=== PATIENT | male | born 1955 | race Caucasian/White ===

== ENCOUNTER → 2017-09-26 15:08 | Outpatient (REF) | payer MEDICARE, MEDICAID, SELFPAY ==
[2017-09-26 17:27] LABS: Amphetamine/Metha Screen,Urine Negative ng/mL (<1000); Barbiturates Screen,Urine Negative ng/mL (<200); Benzodiazepines Screen,Urine Positive ng/mL (200); Cannabinoid Screen,Urine Negative ng/mL (<50); Cocaine Screen,Urine Negative ng/g (<300); Methadone Screen,Urine Negative ng/mL (<300); Opiate Screen,Urine Negative ng/mL (<300); Phencyclidine Screen,Urine Negative ng/mL (<25)
== END ==
LOC: LAB 15:08
PROVIDERS: Visit Provider Emergency Medicine
DX: Z79.899 Other long term (current) drug therapy (principal)
CPT/HCPCS: 80305

== ENCOUNTER → 2017-12-23 14:27 | Outpatient (REF) | payer MEDICARE, MEDICAID, SELFPAY ==
[2017-12-23 18:47] LABS: Basophils % 0.9 % (0.1-2.0); Eosinophils # 0.1 K/mm3 (0.0-0.4); Eosinophils % 2.5 % (0.1-12.0); Hematocrit 47.1 % (42.0-52.0); Hemoglobin 14.5 g/dL (14.1-18.0); Lymphocytes # 1.2 K/mm3 (0.7-4.5); Lymphocytes % 24.2 K/mm3 (10-50); Mean Corpuscular HGB Conc 30.9 g/dL (31.8-35.4); Mean Corpuscular Hemoglobin 31.1 pg (27.0-31.2); Mean Corpuscular Volume 100.6 fl (80-94); Mean Platelet Volume 8.4 fl (7.4-10.4); Monocytes # 0.3 K/mm3 (0.1-1.0); Monocytes % 7.2 % (1.7-9.3); Neutrophils # 3.1 K/mm3 (1.8-7.8); Neutrophils % 65.2 % (37.0-80.0); Platelet Count 257 K/mm3 (142-424); Red Blood Count 4.68 M/mm3 (4.60-6.20); Red Cell Distribution Width 18.1 % (11.5-17.5); White Blood Count 4.8 K/mm3 (4.8-10.8)
[2017-12-23 19:36] LABS: Amphetamine/Metha Screen,Urine Negative ng/mL (<1000); Barbiturates Screen,Urine Negative ng/mL (<200); Benzodiazepines Screen,Urine Positive ng/mL (200); Cannabinoid Screen,Urine Negative ng/mL (<50); Cocaine Screen,Urine Negative ng/g (<300); Methadone Screen,Urine Negative ng/mL (<300); Opiate Screen,Urine Negative ng/mL (<300); Phencyclidine Screen,Urine Negative ng/mL (<25)
[2017-12-23 19:39] LABS: Alanine Aminotransferase 33 U/L (12-78); Albumin Level 3.8 gm/dL (3.4-5.0); Albumin/Globulin Ratio 1.1 (1.1-1.8); Alkaline Phosphatase 137 U/L (46-116); Aspartate Amino Transferase 45 U/L (15-37); Bilirubin,Total 0.5 mg/dL (0.2-1.0); Blood Urea Nitrogen 9 mg/dL (7-18); Calcium 9.4 mg/dL (8.5-10.1); Carbon Dioxide 29 mmol/L (21.0-32.0); Chloride 102 mmol/L (98-107); Estimated Glomerular Filt Rate 76 ml/min (>60); Free T4 (Free Thyroxine) 0.76 ng/dl (0.76-1.46); GFR (African American) 92 ML/MIN (>60); Globulin 3.4 gm/dl (1.3-3.2); Glucose 126 mg/dL (74-106); Sodium 140 mmol/L (136-145); Thyroid Stimulating Hormone 1.27 uIU/ml (0.358-3.740); Total Protein,Serum 7.2 gm/dL (6.4-8.2)
[2017-12-23 20:29] LABS: Erythrocyte Sedimentation Rate 11 mm/hr (0-20)
== END ==
LOC: LAB 14:27
PROVIDERS: Visit Provider Emergency Medicine
DX: Z79.899 Other long term (current) drug therapy (principal); E78.5 Hyperlipidemia, unspecified
CPT/HCPCS: 80053; 80305; 84439; 84443; 85025; 85651

== ENCOUNTER → 2018-03-27 11:55 | Outpatient (REF) | payer MEDICARE, MEDICAID, SELFPAY ==
[2018-03-30 17:44] LABS: Amphetamine/Metha Screen,Urine Negative ng/mL (<1000); Barbiturates Screen,Urine Negative ng/mL (<200); Benzodiazepines Screen,Urine Positive ng/mL (<200); Cannabinoid Screen,Urine Negative ng/mL (<50); Cocaine Screen,Urine Negative ng/mL (<300); Methadone Screen,Urine Negative ng/mL (<300); Opiate Screen,Urine Negative ng/mL (<300); Phencyclidine Screen,Urine Negative ng/mL (<25)
== END ==
LOC: LAB 11:55
PROVIDERS: Visit Provider Emergency Medicine
DX: Z79.899 Other long term (current) drug therapy (principal)
CPT/HCPCS: 80305

== ENCOUNTER → 2018-07-21 18:03 | Outpatient (CLI) | payer MEDICARE, MEDICAID, SELFPAY ==
[2018-07-21 20:53] LABS: Amphetamine/Metha Screen,Urine Negative ng/mL (<1000); Barbiturates Screen,Urine Negative ng/mL (<200); Benzodiazepines Screen,Urine Negative ng/mL (<200); Cannabinoid Screen,Urine Negative ng/mL (<50); Cocaine Screen,Urine Negative ng/mL (<300); Methadone Screen,Urine Negative ng/mL (<300); Opiate Screen,Urine Negative ng/mL (<300); Phencyclidine Screen,Urine Negative ng/mL (<25)
[2018-07-26 18:07] LABS: Alprazolam Negative (Cutoff=100); Benzodiazepines Negative ng/mL (Cutoff=100); Clonazepam Negative (Cutoff=100); Flurazepam Negative (Cutoff=100); Lorazepam Negative (Cutoff=100); Midazolam Negative (Cutoff=100); Temazepam Negative (Cutoff=100); Triazolam Negative (Cutoff=100)
== END ==
PROVIDERS: Visit Provider Nurse Practitioner Family
DX: Z79.899 Other long term (current) drug therapy (principal)
CPT/HCPCS: 80305; 80346

== ENCOUNTER → 2018-09-28 13:57 | Outpatient (CLI) | payer MEDICARE, MEDICAID, SELFPAY ==
[2018-09-28 14:30] LABS: Basophils % 0.7 % (0.1-2.0); Eosinophils # 0.1 K/mm3 (0.0-0.4); Hematocrit 43.1 % (42.0-52.0); Hemoglobin 14.1 g/dL (14.1-18.0); Lymphocytes % 27.1 % (10-50); Mean Corpuscular HGB Conc 32.7 g/dL (31.8-35.4); Mean Corpuscular Hemoglobin 31.9 pg (27.0-31.2); Mean Corpuscular Volume 97.5 fl (80-94); Mean Platelet Volume 8.4 fl (7.4-10.4); Monocytes # 0.3 K/mm3 (0.1-1.0); Monocytes % 8.4 % (1.7-9.3); Neutrophils # 2.3 K/mm3 (1.8-7.8); Neutrophils % 60.9 % (37.0-80.0); Platelet Count 194 K/mm3 (142-424); Red Blood Count 4.42 M/mm3 (4.60-6.20); Red Cell Distribution Width 15.6 % (11.5-17.5); White Blood Count 3.7 K/mm3 (4.8-10.8)
[2018-09-28 14:52] LABS: Alanine Aminotransferase 61 U/L (12-78); Albumin Level 3.7 gm/dL (3.4-5.0); Albumin/Globulin Ratio 1.2 (1.1-1.8); Alkaline Phosphatase 84 U/L (46-116); Anion Gap 13.4 mEq/L (5-15); Aspartate Amino Transferase 85 U/L (15-37); Bilirubin,Total 0.7 mg/dL (0.2-1.0); Blood Urea Nitrogen 9 mg/dL (7-18); Calcium 8.7 mg/dL (8.5-10.1); Carbon Dioxide 28 mmol/L (21.0-32.0); Chloride 103 mmol/L (98-107); Chol/HDL Ratio 6.2 (1-3.5); Cholesterol 223 mg/dL (140-200); Creatinine,Serum 1.07 mg/dL (0.70-1.30); Estimated Glomerular Filt Rate 70 ml/min (>60); Free T4 (Free Thyroxine) 0.99 ng/dl (0.76-1.46); GFR (African American) 84 ML/MIN (>60); Globulin 3.1 gm/dl (1.3-3.2); Glucose 163 mg/dL (74-106); HDL Cholesterol 36 mg/dL (27-67); LDL Cholesterol 150 mg/dL (0-130); Lipase 168 u/L (73-393); Potassium 4.4 mmoL/L (3.5-5.1); Sodium 140 mmol/L (136-145); Thyroid Stimulating Hormone 1.53 uIU/ml (0.358-3.740); Total Protein,Serum 6.8 gm/dL (6.4-8.2); Triglycerides 187 mg/dL (30-200); Uric Acid 8.3 mg/dL (2.6-7.2); VLDL Cholesterol 37 mg/dL (0-40)
[2018-09-28 22:42] LABS: Amphetamine/Metha Screen,Urine Negative ng/mL (<1000); Barbiturates Screen,Urine Negative ng/mL (<200); Benzodiazepines Screen,Urine Positive ng/mL (<200); Cannabinoid Screen,Urine Negative ng/mL (<50); Cocaine Screen,Urine Negative ng/mL (<300); Methadone Screen,Urine Negative ng/mL (<300); Opiate Screen,Urine Negative ng/mL (<300); Phencyclidine Screen,Urine Negative ng/mL (<25)
[2018-09-30 09:31] LABS: Vitamin D 25 Hydroxy 11.9 ng/mL (30.0-100.0)
== END ==
PROVIDERS: Visit Provider Emergency Medicine
DX: I10 Essential (primary) hypertension (principal); Z79.899 Other long term (current) drug therapy
CPT/HCPCS: 80053; 80061; 80305; 82652; 83690; 84439; 84443; 84550; 85025

== ENCOUNTER → 2019-03-29 17:15 | Outpatient (CLI) | payer MEDICARE, MEDICAID, SELFPAY ==
[2019-03-29 20:53] LABS: Amphetamine/Metha Screen,Urine Negative ng/mL (<1000); Barbiturates Screen,Urine Negative ng/mL (<200); Benzodiazepines Screen,Urine Positive ng/mL (<200); Cannabinoid Screen,Urine Negative ng/mL (<50); Cocaine Screen,Urine Negative ng/mL (<300); Methadone Screen,Urine Negative ng/mL (<300); Opiate Screen,Urine Negative ng/mL (<300); Phencyclidine Screen,Urine Negative ng/mL (<25)
== END ==
PROVIDERS: Visit Provider Emergency Medicine
DX: Z79.899 Other long term (current) drug therapy (principal)
CPT/HCPCS: 80305

== ENCOUNTER → 2019-11-26 13:20 | Outpatient (CLI) | payer MEDICARE, MEDICAID, SELFPAY ==
--- NOTE | 2019-11-26 13:20 | CT_ITS ---
PROCEDURE: CT HEAD/BRAIN WO CON CLINICAL INDICATION: Fall Posttraumatic pain, right temporal hematoma fall with injury and pain COMPARISON: No exams were available for comparison TECHNIQUE: Axial images obtained. All CT scans at the facility use one or more dose reduction, viz: automated exposure control, ma/kV adjustment per patient size (including targeted exams where dose is matched to indication, i.e. head), or iterative reconstruction technique. FINDINGS: No midline shift, mass effect, intracranial hemorrhage, hydrocephalus, or extra-axial fluid collection is evident. There is generalized atrophy with hypoattenuation of the periventricular white matter consistent with microangiopathic changes. The calvarium has an unremarkable appearance. There is a moderate-sized hematoma involving the scalp in the right parietal occipital region. No sinus air-fluid level. IMPRESSION: The 1. No acute intracranial findings. 2. Right parietal occipital scalp hematoma Dictated by: Jonh Contreras MD 11/26/2019 13:44 Electronically signed by Jonh Contreras MD in [place] 11/26/2019 13:44
== END ==
PROVIDERS: PCP Emergency Medicine; Visit Provider Emergency Medicine
DX: W19.XXXA Unspecified fall, initial encounter (principal); S09.90XA Unspecified injury of head, initial encounter; R51 Headache
CPT/HCPCS: 70450

== ENCOUNTER → 2020-12-08 10:16 | Outpatient (CLI) | payer MEDICARE, MEDICAID, SELFPAY ==
[2020-12-08 10:30] LABS: Basophils # 0.1 K/mm3 (0-0.2); Basophils % 0.9 % (0.1-2.0); Eosinophils # 0.2 K/mm3 (0.0-0.4); Eosinophils % 3.5 % (0.1-12.0); Hematocrit 44.1 % (42.0-52.0); Hemoglobin 14.7 g/dL (14.1-18.0); Lymphocytes % 29.5 % (10-50); Mean Corpuscular HGB Conc 33.3 g/dL (31.8-35.4); Mean Corpuscular Hemoglobin 32.4 pg (27.0-31.2); Mean Corpuscular Volume 97.3 fl (80-94); Mean Platelet Volume 7.6 fl (7.4-10.4); Monocytes # 0.4 K/mm3 (0.1-1.0); Monocytes % 5.2 % (1.7-9.3); Neutrophils # 4.2 K/mm3 (1.8-7.8); Platelet Count 237 K/mm3 (142-424); Red Blood Count 4.54 M/mm3 (4.60-6.20); Red Cell Distribution Width 15.6 % (11.5-17.5); White Blood Count 6.9 K/mm3 (4.8-10.8)
[2020-12-08 10:36] LABS: Chloride 103 mmol/L (98-107); Potassium 4.9 mmoL/L (3.5-5.1); Sodium 140 mmol/L (136-145)
[2020-12-08 10:39] LABS: Alanine Aminotransferase 29 U/L (12-78); Albumin Level 4.8 g/dl (3.5-5.0); Albumin/Globulin Ratio 1.5 (1.1-1.8); Alkaline Phosphatase 73 U/L (38-126); Anion Gap 9.9 mEq/L (5-15); Aspartate Amino Transferase 31 U/L (17-59); Bilirubin,Total 0.5 mg/dl (0.2-1.3); Blood Urea Nitrogen 20 mg/dl (9-20); Carbon Dioxide 32 mmol/L (22.0-30.0); Estimated Glomerular Filt Rate 51 ml/min (>60); GFR (African American) 62 ML/MIN (>60); Globulin 3.2 g/dL (1.3-3.2)
[2020-12-08 10:40] LABS: Calcium 10.4 mg/dl (8.4-10.2); Glucose 152 mg/dl (74-100)
== END ==
PROVIDERS: Visit Provider Nurse Practitioner Psychiatric/Mental Health
DX: Z00.00 Encounter for general adult medical examination without abnormal findings (principal); G47.00 Insomnia, unspecified
CPT/HCPCS: 36415; 80053; 85025

== ENCOUNTER → 2021-05-02 08:00 | Outpatient (CLI) | payer MEDICARE, MEDICAID, SELFPAY ==
[2021-05-03 15:55] LABS: Barbiturates Screen,Urine Negative ng/ml (<200)
[2021-05-03 15:56] LABS: Amphetamine/Metha Screen,Urine Negative ng/ml (<1000); Benzodiazepines Screen,Urine Positive ng/ml (<200)
[2021-05-03 15:57] LABS: Cannabinoid Screen,Urine Negative ng/ml (<50)
[2021-05-03 15:58] LABS: Cocaine Screen,Urine Negative ng/ml (<300); Methadone Screen,Urine Negative ng/ml (<300)
[2021-05-03 15:59] LABS: Opiate Screen,Urine Negative ng/ml (<300); Phencyclidine Screen,Urine Negative ng/ml (<25)
== END ==
PROVIDERS: Visit Provider Emergency Medicine
DX: Z79.899 Other long term (current) drug therapy (principal)
CPT/HCPCS: 80305

== ENCOUNTER → 2021-07-13 12:40 | Outpatient (CLI) | payer MEDICARE, MEDICAID, SELFPAY ==
[2021-07-13 13:01] LABS: Chloride 96 mmol/L (98-107)
[2021-07-13 13:02] LABS: Potassium 3.8 mmoL/L (3.5-5.1); Sodium 133 mmol/L (136-145)
[2021-07-13 13:05] LABS: Anion Gap 17.8 mEq/L (5-15); Blood Urea Nitrogen 15 mg/dl (9-20); Calcium 9.4 mg/dl (8.4-10.2); Carbon Dioxide 23 mmol/L (22.0-30.0); Estimated Glomerular Filt Rate 75 ml/min (>60); GFR (African American) 91 ML/MIN (>60); Glucose 343 mg/dl (74-100)
== END ==
PROVIDERS: Visit Provider Emergency Medicine
DX: Z01.818 Encounter for other preprocedural examination (principal)
CPT/HCPCS: 36415; 80048

== ENCOUNTER → 2021-07-17 10:24 | Outpatient (CLI) | payer MEDICARE, MEDICAID, SELFPAY ==
--- NOTE | 2021-07-17 10:24 | MR_ITS ---
PROCEDURE INFORMATION: Exam: MR Abdomen Without and With Contrast Exam date and time: 07/17/2021 10:24 AM Age: 65 years old Clinical indication: Nausea and other: Jaundice; Patient HX: Concern for pancreatic adenocarcinoma, PT is very jaundice and C/O severe stomach cramping. TECHNIQUE: Imaging protocol: MR of the abdomen without and with intravenous contrast. Contrast material: PROHANCE; Contrast volume: 17 ml; Contrast route: IV; COMPARISON: RUQ US RUQ-(ABD LTD)1ORGAN/QUAD/FU 05/25/2015 8:52 AM FINDINGS: Liver: There is mild signal loss in the liver on the out of phase images. There is moderate intrahepatic biliary dilatation. Gallbladder and bile ducts: The common bile duct is dilated at 18 mm with blunt termination at the pancreatic head margin 27 mm from the ampulla. There is moderate distention of the gallbladder and cystic duct. No calculi are detected. Pancreas: There is a lobulated appearance of the pancreatic head measuring about 3 cm with T2 signal isointense with the spleen on axial image 9:23 and coronal image 3:18. There is mild increase in precontrast T1 signal typical of fatty tissue normally seen in the pancreas. There is peripheral enhancement of the pancreatic head with a nonenhancing 12 x 15 mm focus on axial image 28:28 in the arterial phase and similar images throughout the dynamic study. This region is blurred on the coronal postcontrast images but appears to measure about 17 mm craniocaudal on image 31:60. The main pancreatic duct terminates at the margin of the head on coronal MIP source image 25:36 and 37 2 cm from the ampulla. Spleen: Unremarkable. No splenomegaly. Adrenal glands: Unremarkable. No mass. Kidneys and ureters: There are multiple small cortical cysts of the kidneys. Stomach and bowel: Visualized stomach and intestines are unremarkable. Intraperitoneal space: No free fluid. Arteries: No abdominal aortic aneurysm. Bones/joints: See Pancreas finding. Soft tissues: Unremarkable. IMPRESSION: 1. There is mild signal loss in the liver on the out of phase images. There is moderate intrahepatic biliary dilatation. 2. The common bile duct is dilated at 18 mm with blunt termination at the pancreatic head margin 27 mm from the ampulla. 3. Pancreatic findings suggest an obstructing mass of the common duct and pancreatic duct in the head of the pancreas measuring at least 12 x 15 mm. 4. There is moderate distention of the gallbladder and cystic duct. No calculi are detected. COMMENTS: Consistent with the [employer]'s Incidental Findings Committee white paper (J Am Leeanne Radiol 2018): Any incidental renal lesion less than 1 cm or classified as too small to characterize, or any incidental cystic renal lesion characterized as simple-appearing, is likely benign. No follow-up imaging is recommended for these lesions per consensus recommendations based on imaging criteria.
== END ==
PROVIDERS: PCP Emergency Medicine; Visit Provider Emergency Medicine
DX: K86.89 Other specified diseases of pancreas (principal)
CPT/HCPCS: 74183; A9576

== ENCOUNTER 2021-11-20 20:48 | Observation (INO) | payer MEDICARE, MEDICAID, SELFPAY ==
[2021-11-20 20:49] VITALS: BP 121/76; PULSE 88; RESP 18; TEMP 36.7; O2SAT 100; BMI 23.5
--- NOTE | 2021-11-20 21:06 | CT_ITS ---
PROCEDURE INFORMATION: Exam: CT Head Without Contrast Exam date and time: 11/20/2021 9:06 PM Age: 66 years old Clinical indication: Altered mental status/memory loss; Additional info: AMS TECHNIQUE: Imaging protocol: Computed tomography of the head without contrast. Radiation optimization: All CT scans at this facility use at least one of these dose optimization techniques: automated exposure control; mA and/or kV adjustment per patient size (includes targeted exams where dose is matched to clinical indication); or iterative reconstruction. COMPARISON: CT HEAD/BRAIN WO CON 11/26/2019 1:23 PM FINDINGS: Brain: No intracranial hemorrhage. No edema, swelling or mass-effect. There is mild generalized cerebral atrophy. There is chronic white matter disease in both cerebral hemispheres, nonspecific but likely microvascular ischemic changes. Chronic falcine and meningeal calcifications. Cerebral ventricles: Chronic mild ventriculomegaly, likely due to central atrophy. No progressive hydrocephalus compared with the previous exam. Paranasal sinuses: No acute findings in the visualized sinuses. No significant sinus opacification or air-fluid levels. Minimal ethmoid mucosal thickening. Mastoid air cells: Mastoids are unremarkable as visualized, no effusions. Orbital cavities: No acute intraorbital findings. Vasculature: Atherosclerotic calcified plaques in the internal carotid artery siphons. There are multiple tiny gas bubbles seen in the head and neck, in the sella, possibly cavernous sinuses, anterior craniocervical junction and left vertebral artery or transverse foramen, possibly multiple intravascular air bubbles, which could be iatrogenic from intravenous infusions, air embolus, less likely infection or trauma. Bones/joints: No acute skull fracture. No lytic lesions. 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 Soft tissues: There are no soft tissue masses or fluid collections. IMPRESSION: 1. Several tiny intracranial and craniocervical gas bubbles as detailed above, probably iatrogenic from intravenous infusion, air embolus, less likely would be intravascular gas secondary to trauma or infection. 2. There is no CT evidence of intracranial mass, intracranial hemorrhage, or acute infarct. 3. Chronic senescent changes and non emergency findings, as above, with cerebral atrophy, white matter disease, atherosclerotic disease. 4. Additional nonemergency and chronic findings as above.
--- NOTE | 2021-11-20 21:06 | CT_ITS ---
PROCEDURE INFORMATION: Exam: CT Abdomen And Pelvis With Contrast Exam date and time: 11/20/2021 9:06 PM Age: 66 years old Clinical indication: Nausea and vomiting; Additional info: N/v TECHNIQUE: Imaging protocol: Computed tomography of the abdomen and pelvis with contrast. Radiation optimization: All CT scans at this facility use at least one of these dose optimization techniques: automated exposure control; mA and/or kV adjustment per patient size (includes targeted exams where dose is matched to clinical indication); or iterative reconstruction. Contrast material: ISOVUE; Contrast volume: 75 ml; Contrast route: IV; COMPARISON: MR ABDOMEN WO/W CON 07/17/2021 11:01 AM FINDINGS: Tubes, catheters and devices: Biliary drain. Lungs: In the lung bases there is scattered atelectasis. Liver: Normal. No mass. Gallbladder and bile ducts: Pneumobilia. Pancreas: Atrophic pancreas with pancreatic ductal dilatation. Spleen: Normal. No splenomegaly. Adrenal glands: Normal. No mass. Kidneys and ureters: Normal. No hydronephrosis. Stomach and bowel: Scattered gas and stool throughout the colon. No colitis. No small bowel obstruction. Appendix: No evidence of appendicitis. Intraperitoneal space: Unremarkable. No free air. No significant fluid collection. Vasculature: Unremarkable. No abdominal aortic aneurysm. Lymph nodes: Unremarkable. No enlarged lymph nodes. Urinary bladder: Unremarkable as visualized. Reproductive: Unremarkable as visualized. Bones/joints: Unremarkable. No acute fracture. Soft tissues: Unremarkable. IMPRESSION: 1. No acute intra-abdominal or intrapelvic process. 2. Pneumobilia likely due to biliary drain placement. 3. Distended gallbladder but no calcified stones. 4. Scattered gas and stool throughout the colon but no colitis. 5. Normal kidneys
--- NOTE | 2021-11-20 21:17 | PC.NURSE ---
pt was seen friday at [facility]. requesting records from [facility] for that visit
[2021-11-20 21:35] LABS: Basophils # 0.1 K/mm3 (0-0.2); Basophils % 1.3 % (0.1-2.0); Eosinophils # 0.1 K/mm3 (0.0-0.4); Eosinophils % 1.8 % (0.1-12.0); Hemoglobin 10.3 g/dL (14.1-18.0); Lymphocytes # 1.5 K/mm3 (0.7-4.5); Lymphocytes % 22.4 % (10-50); Mean Corpuscular HGB Conc 30.2 g/dL (31.8-35.4); Mean Corpuscular Hemoglobin 26.7 pg (27.0-31.2); Mean Corpuscular Volume 88.4 fl (80-94); Mean Platelet Volume 8.3 fl (7.4-10.4); Monocytes # 0.3 K/mm3 (0.1-1.0); Monocytes % 4.9 % (1.7-9.3); Neutrophils # 4.7 K/mm3 (1.8-7.8); Neutrophils % 69.5 % (37.0-80.0); Platelet Count 288 K/mm3 (142-424); Red Blood Count 3.85 M/mm3 (4.60-6.20); Red Cell Distribution Width 20.3 % (11.5-17.5); White Blood Count 6.8 K/mm3 (4.8-10.8)
[2021-11-20 21:46] LABS: Alanine Aminotransferase 29 U/L (12-78); Albumin Level 3.1 g/dl (3.5-5.0); Albumin/Globulin Ratio 1.3 (1.1-1.8); Alkaline Phosphatase 107 U/L (38-126); Anion Gap 11.6 mEq/L (5-15); Aspartate Amino Transferase 33 U/L (17-59); Bilirubin,Total 0.3 mg/dl (0.2-1.3); Blood Urea Nitrogen 14 mg/dl (9-20); Calcium 7.3 mg/dl (8.4-10.2); Carbon Dioxide 24 mmol/L (22.0-30.0); Chloride 104 mmol/L (98-107); Creatinine Clearance Estimated 70 mL/min (50-200); Estimated Glomerular Filt Rate 84 ml/min (>60); GFR (African American) 102 ML/MIN (>60); Globulin 2.3 g/dL (1.3-3.2); Glucose 234 mg/dl (74-100); Lipase 36 U/L (23-300); Potassium 3.6 mmoL/L (3.5-5.1); Sodium 136 mmol/L (136-145); Total Protein,Serum 5.4 g/dl (6.3-8.2)
[2021-11-20 21:48] LABS: Lactic Acid 3.4 mmol/L (0.7-2.1)
[2021-11-20 21:49] LABS: Amylase < 30 U/L (30-110)
[2021-11-20 21:51] LABS: C-Reactive Protein 1.9 mg/L (0-4)
[2021-11-20 22:05] LABS: Erythrocyte Sedimentation Rate 42 mm/hr (0-20)
[2021-11-20 22:06] LABS: Procalcitonin 0.088 ng/mL (0.0-2.0)
--- NOTE | 2021-11-20 22:43 | HMH.EDAMS ---
ED Disposition Clinical Impression: Altered mental status Qualifiers: Altered mental status type: delirium Qualified Code(s): R41.0 - Disorientation, unspecified Pancreatic cancer Qualifiers: Pancreatic malignancy location: unspecified Qualified Code(s): C25.9 - Malignant neoplasm of pancreas, unspecified Disposition: Admitted As Inpatient Condition on Discharge: Fair - Critical Care Critical Care Time: No Attestation: On 11/20/21, the high probability of a clinically significant, sudden or life threatening deterioration of the following system(s) required my full and direct attention, intervention and personal management. The time I documented below is in addition to time spent performing reported procedures but includes the following listed in this critical care notation. Medical Decision Making - Medical Records Medical records reviewed: Yes: I reviewed the patient's medical records. - Jerman Inquiry Pt receiving controlled substance: No Vital Signs: 11/20/21 20:49 Temperature 98.0 F Temperature Source Oral Pulse Rate [Right] 88 Respiratory Rate 18 Blood Pressure [Right Arm] 121/76 Blood Pressure Mean [Right Arm] 91 02 Sat by Pulse Oximetry 100 - Lab Data Lab results reviewed: Yes: I reviewed the patient's lab results. Lab Results 11/20/21 21:21: WBC 6.8, RBC 3.85 L, Hgb 10.3 L, Hct 34.0 L, MCV 88.4, MCH 26.7 L, MCHC 30.2 L, RDW 20.3 H, Plt Count 288, MPV 8.3, Neut % (Auto) 69.5, Lymph % (Auto) 22.4, Amador % (Auto) 4.9, Eos % (Auto) 1.8, Baso % (Auto) 1.3, Neut # (Auto) 4.7, Lymph # (Auto) 1.5, Amador # (Auto) 0.3, Eos # (Auto) 0.1, Baso # (Auto) 0.1, ESR 42 H 11/20/21 21:21: Sodium 136, Potassium 3.6, Chloride 104, Carbon Dioxide 24, Anion Gap 11.6, BUN 14, Creatinine 0.90, Estimated Creat Clear 70, Estimated GFR 84, Est GFR ( Amer) 102, Glucose 234 H, Calcium 7.3 L, Total Bilirubin 0.3, AST 33, ALT 29, Alkaline Phosphatase 107, C-Reactive Protein 1.9, Total Protein 5.4 L D, Albumin 3.1 L, Globulin 2.3, Albumin/Globulin Ratio 1.3, Amylase < 30 L, Lipase 36, Procalcitonin 0.088 11/20/21 21:21: Lactate 3.4 H 11/20/21 21:21: Hemoglobin A1c 12.7 H 11/20/21 21:21: Plasma/Serum Alcohol < 10 11/20/21 22:50: SARS-CoV-2 (PCR) Not detected, Influenza A Untype (PCR) Not detected, Influenza Type B (PCR) Not detected 11/20/21 22:55: Urine Color Yellow, Urine Appearance Clear, Urine pH 6.0, Ur Specific Ivins 1.015, Urine Protein Negative, Urine Glucose (UA) Negative, Urine Ketones Negative, Urine Blood Negative, Urine Nitrate Negative, Urine Bilirubin Negative, Urine Urobilinogen 0.2, Ur Leukocyte Esterase Negative, Urine RBC Occasional, Urine WBC 5-10, Ur Squamous Epith Cells Occasional, Urine Bacteria Trace 11/20/21 22:55: Urine Opiates Screen Negative, Urine Methadone Screen Negative, Ur Barbituates Screen Negative, Ur Phencyclidine Scrn Negative, Ur Amphetamines Screen Negative, U Benzodiazepines Scrn Positive H, Urine Cocaine Screen Negative, U Marijuana (THC) Screen Positive H Result diagrams: 11/20/21 21:21 11/20/21 21:21 Orders (Tests/Meds): ED MEDICATIONS Generic Name Dose Route Start Last Admin Trade Name Freq PRN Reason Stop Dose Admin Sodium Chloride 1,000 mls @ 999 mls/hr 11/20/21 21:30 11/20/21 21:24 Sod Chlor 0.9% 1000ml Bag IV 11/20/21 22:30 999 mls/hr .Q1H1M YOLIE Administration Sodium Chloride 1,000 mls @ 999 mls/hr 11/20/21 23:00 11/20/21 23:04 Sod Chlor 0.9% 1000ml Bag IV 11/21/21 00:00 999 mls/hr .Q1H1M YOLIE Administration Sodium Chloride 8 ml 11/20/21 21:20 Sodium Chloride 0.9% 10ml Vial IV 12/20/21 21:19 NEEDED PRN dilute pepcid Discontinued Medications Generic Name Dose Route Start Last Admin Trade Name Freq PRN Reason Stop Dose Admin Famotidine 20 mg 11/20/21 21:20 11/20/21 21:24 Famotidine 20mg/2ml Vial IV 11/20/21 21:21 20 mg ONCE ONE Administration Hydromorphone HCl 1 mg 11/20/21 22:59 11/20/21 23:03 Hydromorphone
[2021-11-20 22:56] LABS: Coronavirus 19, PCR Not Detected (NotDetected); Influenza A, PCR Not Detected (NotDetected); Influenza B, PCR Not Detected (NotDetected)
[2021-11-20 23:00] LABS: Microscopic, Urine URINE MICROSCOPIC (MICROSCOPIC)
[2021-11-20 23:01] LABS: Appearance,Urine CLEAR (Clear); Bilirubin,Urine Negative (Negative); Blood, Urine Negative (Negative); Color,Urine YELLOW (Yellow); Glucose,Urine (UA) Negative (Negative); Ketones,Urine Negative (Negative); Leukocyte Esterase,Urine Negative (Negative); Nitrate,Urine Negative (Negative); Protein,Urine Negative (Negative); Specific Gravity, Urine 1.015 (1.005-1.030); Urobilinogen,Urine 0.2 EU/dl (0.2)
[2021-11-20 23:02] LABS: Ethyl Alcohol < 10 mg/dl (0-10); Hemoglobin A1C 12.7 % (4.0-6.0)
[2021-11-20 23:14] LABS: Amphetamine/Metha Screen,Urine Negative ng/ml (<1000)
[2021-11-20 23:15] LABS: Barbiturates Screen,Urine Negative ng/ml (<200)
[2021-11-20 23:16] LABS: Benzodiazepines Screen,Urine Positive ng/ml (<200); Cannabinoid Screen,Urine Positive ng/ml (<50)
[2021-11-20 23:17] LABS: Cocaine Screen,Urine Negative ng/ml (<300); Methadone Screen,Urine Negative ng/ml (<300)
[2021-11-20 23:18] LABS: Opiate Screen,Urine Negative ng/ml (<300)
[2021-11-20 23:19] LABS: Phencyclidine Screen,Urine Negative ng/ml (<25)
[2021-11-20 23:21] VITALS: BMI 26.5
[2021-11-20 23:30] LABS: RBC,Urine Occasional #/hpf (0-3); Squamous Epithelial Cell,Urine Occasional #/hpf (0-5)
[2021-11-20 23:31] LABS: Bacteria,Urine Trace /lpf
[2021-11-21] VITALS (8 sets, daily range): BP systolic 101–130; BP diastolic 56–79; PULSE 58–82; RESP 16–18; TEMP 36.4–37.1; O2SAT 96–100; BMI 26.5
[2021-11-21 01:15] LABS: Reflex Lactic Add Lactic Reflex
[2021-11-21 01:42] LABS: Lactic Acid Follow Up (RFLX 1) 2.1 mmol/L (0.7-2.1)
--- NOTE | 2021-11-21 01:42 | PC.NURSE ---
patient up to floor @ 00:27.
[2021-11-21 03:26] LABS: Reflex Lactic (2 hrs) Add Lactic Reflex
[2021-11-21 03:48] LABS: Lactic Acid Follow up (RFLX 2) 1.5 mmol/L (0.7-2.1)
[2021-11-21 06:10] LABS: POC Glucose,Bedside 157 (70-110)
[2021-11-21 06:51] LABS: Eosinophils # 0.1 K/mm3 (0.0-0.4); Monocytes # 0.3 K/mm3 (0.1-1.0)
--- NOTE | 2021-11-21 07:00 | XR_ITS ---
PROCEDURE INFORMATION: Exam: XR Chest Exam date and time: 11/21/2021 7:00 AM Age: 66 years old Clinical indication: Shortness of breath; Prior surgery; Additional info: SOB TECHNIQUE: Imaging protocol: XR of the chest. Views: 1 view. COMPARISON: CT ABDOMEN PELVIS W CON 11/20/2021 10:04 PM FINDINGS: Tubes, catheters and devices: Right IJ chest port. Lungs: No evidence of an active pulmonary process. No focal consolidation. Pleural spaces: No pneumothorax. Heart/Mediastinum: Mild prominence of the cardiac silhouette, accentuated by the AP projection. Bones/joints: No evidence of an acute fracture. Soft tissues: Surgical clips in the bilateral axillary regions. IMPRESSION: No acute process. Otherwise, as above.
[2021-11-21 07:04] LABS: Anion Gap 7.4 mEq/L (5-15); Blood Urea Nitrogen 13 mg/dl (9-20); Calcium 6.8 mg/dl (8.4-10.2); Carbon Dioxide 24 mmol/L (22.0-30.0); Chloride 106 mmol/L (98-107); Creatinine Clearance Estimated 79 mL/min (50-200); Estimated Glomerular Filt Rate 97 ml/min (>60); GFR (African American) 117 ML/MIN (>60); Glucose 139 mg/dl (74-100); Potassium 3.4 mmoL/L (3.5-5.1); Sodium 134 mmol/L (136-145)
[2021-11-21 07:11] LABS: Magnesium 0.8 mg/dl (1.6-2.3)
--- NOTE | 2021-11-21 07:11 | PC.NURSE ---
Lab called w/ a critical result Mag level is 0.8 Passed to Nell Trammell RN
--- NOTE | 2021-11-21 07:16 | HMH.PHAVTE ---
[facility] Pharmacy VTE Monitoring - Patient Demographics Admission date: 11/20/21 Report Date: 11/21/21 Time: 07:16 Allergies/Adverse Reactions: Patient Allergies No Known Allergies Allergy (Verified 07/30/21 15:16) Height: 1.7 m Weight: 76.702 kg Patient Problems: Current Active Problems Altered mental status (Acute) Pancreatic cancer (Acute) - VTE Risk Labs: VTE Related Lab Results Hgb 10.3 g/dL (14.1-18.0) L 11/20/21 21:21 Hct 34.0 % (42.0-52.0) L 11/20/21 21:21 Plt Count 288 K/mm3 (142-424) 11/20/21 21:21 BUN 13 mg/dl (9-20) 11/21/21 06:26 Creatinine 0.80 mg/dl (0.66-1.25) 11/21/21 06:26 Estimated Creat Clear 79 mL/min (50-200) 11/21/21 06:26 VTE Score: 2 VTE Risk Level: Very Low Risk - Prophylaxis VTE Prophylaxis Ordered?: Yes Types of VTE Prophylaxis: TEDS Knee High Location of Applied Device: Bilateral Lower Extremeties
[2021-11-21 07:40] LABS: Basophils % 0.6 % (0.1-2.0); Hematocrit 28.8 % (42.0-52.0); Lymphocytes # 1.4 K/mm3 (0.7-4.5); Lymphocytes % 30.1 % (10-50); Mean Corpuscular HGB Conc 30.7 g/dL (31.8-35.4); Mean Corpuscular Hemoglobin 26.9 pg (27.0-31.2); Mean Corpuscular Volume 87.5 fl (80-94); Mean Platelet Volume 8.5 fl (7.4-10.4); Monocytes % 5.5 % (1.7-9.3); Neutrophils # 2.8 K/mm3 (1.8-7.8); Neutrophils % 60.7 % (37.0-80.0); Platelet Count 231 K/mm3 (142-424); Red Cell Distribution Width 20.3 % (11.5-17.5); White Blood Count 4.7 K/mm3 (4.8-10.8)
--- NOTE | 2021-11-21 07:46 | HMH.PHAINT ---
Home med rec complete
[2021-11-21 08:34] LABS: Hemoglobin 8.9 g/dL (14.1-18.0)
--- NOTE | 2021-11-21 11:30 | MR_ITS ---
FINAL REPORT CLINICAL HISTORY: Abnormal Head CT, ams COMPARISON: CT head dated 11/20/2021 FINDINGS: Multiplanar MR imaging of the brain was performed without contrast. There is mild age-appropriate atrophy. There are scattered foci of increased T2 signal in the cerebral white matter that have a nonspecific appearance but likely represent moderate to severe chronic ischemic/gliotic changes. There is no evidence of intracranial hemorrhage or mass. No abnormal ventricular dilatation is identified. No abnormal extra-axial fluid collection is seen. No abnormality is seen on the diffusion weighted images. The posterior fossa and brainstem are unremarkable. Normal major vessel vascular flow voids are seen. No intracranial air is identified. IMPRESSION: Age-appropriate atrophy and moderate to severe chronic ischemic/gliotic changes. No intracranial air identified. No acute intracranial abnormality. Reviewed, Interpreted and Dictated by Marlon Fong III, MD Transcribed by Elizabeth Nelson Authenticated by Marlon Fong III, MD on 11/21/2021 02:22:29 PM [facility]
--- NOTE | 2021-11-21 11:32 | HMH.PTEV ---
Physical Therapy Evaluation Rehab PT IP Evaluation Start: 11/21/21 10:26 Freq: ONCE Status: Complete Protocol: Document 11/21/21 11:19 RACH (Rec: 11/21/21 11:32 RACH [id number]) Subjective/History History History pt with confusion and weakness with hx of pancreatic cancer but has stopped chemo - denied etoh - no fever or trauma MD complaint: altered mental status Onset (ago): day(s) Timing confirmed by: family member Severity: moderate Consistency of symptoms: waxing and waning Context: alcohol abuse, diabetes, cancer Associated symptoms: denies other symptoms copied from ED dcoumentation Subjective Subjective Pt reports he wants a catheter b/c he needs to use the bathroom but it won't come out pt very verbally hostile towards therapy and nursing because inability to give catheter - pt is in and out of confusion w/ changing answers to questions and being upset/ angry about being asked all these questions Rehab PT IP Eval Objective Appearance Patient Behavior Belligerent,Resistive to Care, Confused Patient Orientation Place,Name,Birthday Difficulty following instructions none Speech Pattern Clear,Includes Profanity, Excited Ambulation Patient Able to Ambulate Yes Ambulation Observation IP General Gait Pattern Observation No Deviations/Normal Ambulation Distance (feet) 10 Ambulation Assistive Device None Ambulation Ability Independent Balance Ability to Arise Able, w/o using arms Sitting Balance Steady, safe Standing Balance Steady, wide stance Dynamic Sitting Balance Ability Normal Dynamic Standing Balance Ability Good Transfers Bed Transfer Ability Independent Sit to Stand Bed Transfer Ability Independent Rehab PT IP prob,goals,plan Problems Date of Evaluation: 11/21/21 Rehab Potential Rehab Potential Innapropriate for Skilled Therapy Discharge Plan PT Discharge Plan Pt is functionally independent
--- NOTE | 2021-11-21 11:41 | HMH.OTEV ---
OT Inpatient Evaluation Rehab OT IP Evaluation Start: 11/21/21 11:07 Freq: ONCE Status: Complete Protocol: Document 11/21/21 11:33 [id number] (Rec: 11/21/21 11:41 BOB [id number]) Rehab OT IP Assessment Subjective History 66 year old male referred to skilled OP OT services for placement for discharge. Patient brought to ER for AMS. Patient is functionally indepedent with bed mobility, transfers and ambulation. Patient became verbally aggressive towards OT during evaluation. Patient is not appropriate for IP services at this time with unwilling to participate at this time. Subjective I need a catheter! Nursing in room during evaluation with US scan. Objective Patient Orientation Person,Place,Name,Birthday, Year Upper Extremity Gross ROM WFL Bed Mobility bed mobility - supine/sit Assist Level Independent Transfer Training Sit/Stand/Pivot Transfer Assist Level Independent Chair Transfer Ability Independent Chair Transfer Technique Sit to/from Ambulatory Chair Transfer Assistive Devices None Rehab OT IP prob,goals,plan Problems Date of Evaluation: 11/21/21 Rehab Potential Rehab Potential Innapropriate for Skilled Therapy Discharge Plan OT Discharge Plan Recommend Placement after medical d/c from this facility . Eval Complexity Eval Charge Codes 06920 - Low Complexity G Codes G -code Required No PHYSICIAN CERTIFICATION: I certify the specified therapy services for Richi Hamilton are required, authorized, and reviewed every 30 days.
[2021-11-21 12:06] LABS: Microscopic,Cath URINE MICROSCOPIC (MICROSCOPIC)
[2021-11-21 12:10] LABS: Appearance,Urine/Cath CLEAR (Clear); Bilirubin,Cath Negative (Negative); Blood, Urine/Cath Negative (Negative); Color,Urine/Cath YELLOW (Yellow); Glucose,Urine/Cath (UA) TRACE (Negative); Ketones,Urine/Cath Negative (Negative); Leukocyte Esterase,Cath Negative (Negative); Nitrate,Cath Negative (Negative); Protein,Urine/Cath Negative (Negative); Urobilinogen,Cath 0.2 EU/dl (0.2)
[2021-11-21 12:27] LABS: POC Glucose,Bedside 240 (70-110)
--- NOTE | 2021-11-21 12:34 | HMH.HP ---
*Admission Date: 11/20/21 *Chief complaint: Altered Mental Status *History of present illness: 66-year-old male patient presented to the [facility] emergency department with reports of confusion, weakness, and all over body pain. He does have a history of pancreatic cancer and has stopped his chemo. He denies any alcohol, fever/chills/body aches, nausea/vomiting/diarrhea, or trauma. Patient and sister report he is having a difficult time caring for himself. 11/20/[address]: FINDINGS: Brain: No intracranial hemorrhage. No edema, swelling or mass-effect. There is mild generalized cerebral atrophy. There is chronic white matter disease in both cerebral hemispheres, nonspecific but likely microvascular ischemic changes. Chronic falcine and meningeal calcifications. Cerebral ventricles: Chronic mild ventriculomegaly, likely due to central atrophy. No progressive hydrocephalus compared with the previous exam. Paranasal sinuses: No acute findings in the visualized sinuses. No significant sinus opacification or air-fluid levels. Minimal ethmoid mucosal thickening. Mastoid air cells: Mastoids are unremarkable as visualized, no effusions. Orbital cavities: No acute intraorbital findings. Vasculature: Atherosclerotic calcified plaques in the internal carotid artery siphons. There are multiple tiny gas bubbles seen in the head and neck, in the sella, possibly cavernous sinuses, anterior craniocervical junction and left vertebral artery or transverse foramen, possibly multiple intravascular air bubbles, which could be iatrogenic from intravenous infusions, air embolus, less likely infection or trauma. Bones/joints: No acute skull fracture. No lytic lesions. 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 Soft tissues: There are no soft tissue masses or fluid collections. IMPRESSION: 1. Several tiny intracranial and craniocervical gas bubbles as detailed above, probably iatrogenic from intravenous infusion, air embolus, less likely would be intravascular gas secondary to trauma or infection. 2. There is no CT evidence of intracranial mass, intracranial hemorrhage, or acute infarct. 3. Chronic senescent changes and non emergency findings, as above, with cerebral atrophy, white matter disease, atherosclerotic disease. 4. Additional nonemergency and chronic findings as above. Electronically signed by Rosemary Hsu MD [facility] History I have reviewed the patient's past medical history: Yes Medical History: Reports:: Anxiety, Cancer (Pancreatic), Depression, Hyperlipidemia, Hypertension Denies:: Diabetes Mellitus Type 1, Diabetes Mellitus Type 2, MRSA *Have you ever received a pneumonia vaccine?: No *Have you received a flu vaccine this season?: Yes Other Surgeries: Yes: Appendectomy, Cancer Surgery, Colonoscopy, Other Amputation: No Fractures: No - *Social History Smoking Status: Never smoker Alcohol Intake: current Alcohol Intake Frequency:: 0-2 drinks per day Substance Use Type: marijuana *Occupational Status:: retired Housing: house *Travel in the last 8 weeks: None - Psychiatric History Pschychiatric History:: Reports:: Anxiety, Depression Family Hx:: Unable to obtain Review of Systems - Review of Systems Review of systems:: pertinent systems reviewed and negative unless documented below - Constitutional Denies body ache(s), Denies fever(s) - Eyes Denies blind spots, Denies change in vision - ENT Denies dizziness, Denies mouth lesions - *Cardiovascular Denies chest pain, Denies shortness of breath - *Respiratory Denies change in phlegm color, Denies chest congestion - *Gastrointestinal Denies abdominal pain, Denies change in bowel habits - *Musculoskeletal Denies joint pain, Denies muscle weakness - Integumentary/Breasts Denies hair loss, Denies yellowing of the skin - *Neurologic Reports confusion, Denies abnormal speech, Denies localized weak
--- NOTE | 2021-11-21 13:37 | PC.NURSE ---
patient resting in bed at this time. no needs voiced. no questions or concerns, call light within reach
--- NOTE | 2021-11-21 15:08 | CARE MANAGER ---
Spoke with this patient sister, Fabiola about this patient in depth and she states that the patient has been living in an apartment alone for a while and he was out in the street yelling in his underwear so they brought him to the ER to be evaluated. I told her all his tests were ok and we really could find no infectious reason for his AMS. Patient has seen MARYCRUZ Alcantara before and she will be consulted on this admit as well. Patient sister states that she will talk to [facility] to hopefully see if patient can return there upon discharge when medically stable. CM staff will follow.
[2021-11-21 16:11] LABS: POC Glucose,Bedside 97 (70-110)
--- NOTE | 2021-11-21 16:11 | PC.NURSE ---
PT REPORTED SUICIDAL IDEATION TO THIS RN. WAS MADE AWARE. CHARGE NURSE INFORMED THAT PT REQUIRES 1ON1 OBSERVATION.
[2021-11-21 19:05] LABS: POC Glucose,Bedside 233 (70-110)
[2021-11-21 20:59] LABS: POC Glucose,Bedside 312 (70-110)
[2021-11-22 04:00] VITALS: BP 116/72; PULSE 70; RESP 16; TEMP 36.6; O2SAT 97
--- NOTE | 2021-11-22 05:28 | PC.NURSE ---
Pt alert to self. Pt has remained 1 on 1 due to suicidal ideation. Pt has been agitated at times yelling with profanity. Pt has voiced multiple complaints to staff including a backache, neck stiffness, not being able to move due to catheter, bad cough, stomachache. Pt has been administered pain med per NOV with pt stating favorable results. Pt reports I just want to get the hell out of here , I'm about to just walk out of here , I'm just going to pull this catheter out , Im not going to eat and I'm going on a hunger strike if I cant leave . Education on need for hospital care told to pt. Pt has been given multiple sugar free snacks t/o night. Call light within reach.
[2021-11-22 07:26] LABS: POC Glucose,Bedside 185 (70-110)
[2021-11-22 08:00] VITALS: BP 126/82; PULSE 67; RESP 15; TEMP 36.7; O2SAT 98
--- NOTE | 2021-11-22 09:31 | P.PN_ITS ---
Internal Medicine - PN: Subj *Date: 11/22/21 *Time: 16:03 Interval history: 66-year-old male patient resting in bed quietly with eyes closed, awakens to verbal stimuli. He is currently in a one-to-one care situation. He denies any thoughts of harming himself or others reports that one time he did but not now. Caregiver reports he is slept most of the night and has not had any verbal threats during her shift. Upon discussion with patient he used to see behavioral health here at [facility] and repeats he stopped because he got tired of going he is unsure if he has been taking his behavioral health medication or not. Exam Vital signs and Labs for Last 24 Hours: Temp Pulse Resp BP Pulse Ox 98.0 F 67 15 126/82 98 11/22/21 08:00 11/22/21 08:00 11/22/21 08:00 11/22/21 08:00 11/22/21 08:00 Laboratory Results - last 24 hr 11/21/21 15:59: POC Glucose 97 11/21/21 18:58: POC Glucose 233 H 11/21/21 20:45: POC Glucose 312 H* 11/22/21 07:03: POC Glucose 185 H 11/22/21 11:30: POC Glucose 167 H I & O for Last 24 hours: Intake & Output 11/19/21 11/20/21 11/21/21 11/22/21 23:59 23:59 23:59 23:59 Intake Total 840 / 840 240 / 240 Output Total 1500 / 1500 Balance -660 / -660 240 / 240 Weight 169 lb 1.6 oz 169 lb 1.583 oz 169 lb 1.513 oz - Constitutional no acute distress - *Routine HEENT Exam Head: Present: normocephalic Eye: Present: EOMI ENT: Present: mucous membranes moist - *Routine Neck Exam Present: trachea midline. Absent: tracheal deviation - *Routine Respiratory Exam Present: CTA bilaterally. Absent: accessory muscle use - *Routine Cardiovascular Exam Present: RRR, murmur - *Routine Abdominal Exam Present: soft, normoactive bowel sounds. Absent: tenderness, rebound - *Routine Extremities Exam Present: full ROM, pulses intact. Absent: cyanosis, clubbing, edema - *Routine Skin Exam Present: intact, dry. Absent: cyanosis, erythema - *Routine Neurological Exam Present: alert, altered mental status - Routine Psychiatric Exam Present: unable to assess Assessment and Plan (1) Altered mental status Status: Acute Qualifiers: Altered mental status type: delirium Qualified Code(s): R41.0 - Disorientation, unspecified Category: Medical Code(s): R41.82 - Altered mental status, unspecified (2) Depression Status: Acute Category: Medical Code(s): F32.9 - Major depressive disorder, single episode, unspecified (3) Hyperlipemia Status: Acute Category: Medical Code(s): E78.5 - Hyperlipidemia, unspecified (4) Hypertension Status: Chronic Qualifiers: Hypertension type: essential hypertension Category: Medical Code(s): I10 - Essential (primary) hypertension (5) Pancreatic cancer Status: Acute Qualifiers: Pancreatic malignancy location: unspecified Qualified Code(s): C25.9 - Malignant neoplasm of pancreas, unspecified Category: Medical Code(s): C25.9 - Malignant neoplasm of pancreas, unspecified - Assessment and plan all Dx Assessment and Plan for all problems:: Rounded with Dr. Donaldson, all orders per Dr. Donaldson: 1. Consult behavioral health
--- NOTE | 2021-11-22 09:41 | SW/DCPLANNER ---
Addendum entered by [facility] 11/23/21 15:26: All patient information has been faxed to [facility]: at this time we are just waiting on discharge summary/order and police transport. Officer Donna stated that they are short staffed and will send a police commissioner once one is available. Addendum entered by [facility] 11/23/21 14:23: Claire field health officer (Donna) has picked up the paperwork for the Deputy Brand Inspector to sign and will return back to [facility]. Officer Donna is aware that patient will need to be transported once process is completed. Addendum entered by [facility] 11/23/21 13:56: Due to patients actions (refer to nursing note Misty Mascorro) I am currently starting the process for an Involuntary Hold to [facility]. Addendum entered by [facility] 11/23/21 12:33: [facility] is not able to accept this patient. Addendum entered by [facility] 11/23/21 12:31: [facility] and has recommended [facility] in [place]. Patient is not a candidate for [facility] due to not being suicidal at this time. Addendum entered by [facility] 11/23/21 11:49: Patient information has also [facility] and a voicemail has been left for [facility]. Addendum entered by [facility] 11/23/21 11:41: [facility] patient. Information has been faxed to [facility]. Addendum entered by [facility] 11/23/21 11:09: [facility], [facility] and [facility] have denied this patient. Patient information has also been faxed to [facility] in [place]. Addendum entered by [facility] 11/23/21 10:05: [facility] has called and stated that they will not have a bed available till Friday. I spoke with Carline from [facility] and she has stated that she is currently reviewing patient information and will call me back within the hour. I have updated patients sister and I will also follow up with [facility] today. Addendum entered by [facility] 11/22/21 15:49: Patient information has also been faxed to [facility] in [place]. Addendum entered by Denise Jordan 11/22/21 15:44: Patients sister is currently having conversations with [email or web address] and patients insurance company regarding cost. Patients sister will follow back up with me once cost is figured [facility]. Addendum entered by Denise Cuero 11/22/21 14:06: [facility] has stated that patient will have an OOP expense. I have asked that patients sister contact [facility] to discuss payment. Patients sister is contacting them now. Addendum entered by Denise Cuero 11/22/21 11:34: [facility] is able to accept this patient pending consent forms signed and patient is agreeable (waiting for facility to fax forms). Myself and Misty Hanson spoke with patient and he did state that he would need to speak with his sister but was agreeable. I called and updated patients sister (Fabiola) and she stated that she would call and speak with patient regarding facility and research facility and call me back. Patient is medically stable for discharge. Addendum entered by Denise Jordan 11/22/21 09:49: I spoke with patients other sister (Fabiola) regarding plans once medically stable for depression. Patient information has been faxed to [facility] and [facility]. I will continue to follow up with our Psych nurse, patients family, MD and facilities. Original Note: I have attempted to contact patients sister (Stacia) regarding plans once patient is medically stable for discharge. I am also waiting to hear from Psych (Misty Hanson) regarding evaluation and recommendations.
[2021-11-22 11:08] VITALS: BMI 26.5
[2021-11-22 11:46] LABS: POC Glucose,Bedside 167 (70-110)
--- NOTE | 2021-11-22 12:38 | HMH.BHCONS ---
*Admission Date: 11/20/21 *Reason for consult:: altered mental status *History of present illness: I saw patient at his bedside; he was alone today (with the 1:1 staff). -he states that he hasn't been the same person since he took his first drink -it took a hold of him -and he could go a few days without it but always went back -he states that he has been drinking again -couldn't tell me why; or when he started this again -he would walk to the store to get this -states that his depression is lousy -that he doesn't want to live anymore -wants to -cause he is too damn old -and he hurts -he states that 'nobody should live til they are 66' He denies any thoughts to kill himself. -he states that he is in enough pain right now -he doesn't want to be in any more pain -he is very irritable -linder -he states that he wants to get up and move around -he is very labile with mood today -he wanted to 'take off his stupid dress' He is oriented to self only. -states that it is 2098 -it is Friday -when asked the president; he states; 'I don't know and don't care' -he knows he is in a hospital; but not sure which one He states that he wants to leave here. -he wants to get the tube out of his penis so he can piss on his own -and get up and walk around -that he doesn't want to be in the hospital any longer -talked to him about the facility case management has been looking into -he is willing to go if his sister says it is okay At this point, he got very agitated; told me to shut up; that he wanted himself to shut up. -he didn't want to hear anymore noise at all RECOMMENDATIONS; 1. Place on CIWAs until discharge -he has a history of drinking 1/5 vodka per day -would not tell me what he is currently drinking or how much 2. Would benefit from Risperdal 0.5mg BID for irritability and mood stabilization -if he is discharged today or tomorrow; the facility he is going to could start this TIME IN: 1115 TIME OUT: [facility] History Medical History: Reports:: Anxiety, Cancer (Pancreatic), Depression, Hyperlipidemia, Hypertension Denies:: Diabetes Mellitus Type 1, Diabetes Mellitus Type 2, MRSA *Have you ever received a pneumonia vaccine?: No *Have you received a flu vaccine this season?: Yes Other Surgeries: Yes: Appendectomy, Cancer Surgery, Colonoscopy, Other Amputation: No Fractures: No - *Social History Smoking Status: Never smoker Alcohol Intake: current Alcohol Intake Frequency:: 0-2 drinks per day Substance Use Type: marijuana *Occupational Status:: retired Housing: house *Travel in the last 8 weeks: None - Psychiatric History Expresses thoughts of harming self/others: Frequent Suicide Plan Description: Organized Pschychiatric History:: Reports:: Anxiety, Depression, Suicide Attempt (pt states he has tried to harm himself before w/ using etoh) Family Hx:: Unable to obtain Review of Systems - *Neurologic Reports confusion, Denies abnormal speech, Denies dizziness, Denies localized weakness, Denies seizure-like activity Meds Home Medications Medication Instructions Recorded Confirmed Type ALPRAZolam [Xanax 0.5mg tab] 0.5 mg PO BID 11/20/21 11/20/21 History Albuterol Sulfate [Albuterol 2 puff IH Q6H PRN 11/20/21 11/21/21 History Sulfate Hfa] Amlodipine Besylate [Amlodipine 10 mg PO DAILY 11/20/21 11/21/21 History 10mg Tab] Doxazosin Mesylate [Cardura 4mg 4 mg PO DAILY 11/20/21 11/20/21 History tablet] Finasteride [Proscar] 5 mg PO DAILY 11/20/21 11/20/21 History Lisinopril/Hydrochlorothiazide 1 tablet PO DAILY 11/20/21 11/21/21 History [Lisinopril-Hctz 10-12.5 mg Tab] Magnesium Chloride [Mag Delay] 70 mg PO DAILY 11/20/21 11/20/21 History Metformin HCl [Metformin 1000mg 1,000 mg PO BID 11/20/21 11/20/21 History Tablets] Oxycodone HCl 5 mg PO Q4H 11/20/21 11/21/21 History Pantoprazole Sodium 40 mg PO DAILY 11/20/21 11/20/21 History Zolpidem Tartrate 10 mg PO HS 11/20/21 11/20/21 History
--- NOTE | 2021-11-22 13:25 | PC.NURSE ---
This RN called and spoke with Beti Fontanez APRN in RE to pt's owusu and potential d/c today. He stated to keep in at this time.Awaiting update on disposition.
[2021-11-22 16:00] VITALS: BP 132/81; PULSE 69; RESP 16; TEMP 36.8; O2SAT 98
[2021-11-22 16:37] LABS: POC Glucose,Bedside 169 (70-110)
[2021-11-22 19:42] VITALS: BP 114/63; PULSE 65; RESP 16; TEMP 37.2; O2SAT 97
[2021-11-22 20:00] VITALS: O2SAT 97
[2021-11-22 22:22] LABS: POC Glucose,Bedside 142 (70-110)
[2021-11-22 22:22] LABS: POC Glucose,Bedside 200 (70-110)
--- NOTE | 2021-11-23 03:54 | PC.NURSE ---
0230 pt cussing and up ambulating yelling stating he was going to take his catheter out, pt also yelling that he needs something now, pt up x2 assist and noted pt to be unsteady on feet, dr poe notified of pt agitation worse at this time, verbal order for ativan 2mg iv and initiate CIWA protocol repeated and verified. 0350 pt still agitated and complains of pain in abdomen and states he wants the catheter out, catheter was flushed and is draining without difficulty to gravity in owusu bag, pt still cussing at states he needs something for pain, dilaudid given as ordered.
[2021-11-23 05:06] VITALS: BMI 26.4
[2021-11-23 07:04] LABS: Basophils % 0.2 % (0.1-2.0); Eosinophils # 0.2 K/mm3 (0.0-0.4); Eosinophils % 2.8 % (0.1-12.0); Hematocrit 29.4 % (42.0-52.0); Lymphocytes # 0.9 K/mm3 (0.7-4.5); Lymphocytes % 16.2 % (10-50); Mean Corpuscular HGB Conc 30.6 g/dL (31.8-35.4); Mean Corpuscular Hemoglobin 26.6 pg (27.0-31.2); Mean Corpuscular Volume 86.8 fl (80-94); Mean Platelet Volume 8.4 fl (7.4-10.4); Monocytes # 0.2 K/mm3 (0.1-1.0); Monocytes % 3.3 % (1.7-9.3); Neutrophils # 4.4 K/mm3 (1.8-7.8); Neutrophils % 77.4 % (37.0-80.0); Platelet Count 222 K/mm3 (142-424); Red Blood Count 3.39 M/mm3 (4.60-6.20); Red Cell Distribution Width 20.2 % (11.5-17.5); White Blood Count 5.7 K/mm3 (4.8-10.8)
[2021-11-23 07:06] LABS: Anion Gap 5.9 mEq/L (5-15); Blood Urea Nitrogen 12 mg/dl (9-20); Calcium 7.1 mg/dl (8.4-10.2); Carbon Dioxide 27 mmol/L (22.0-30.0); Chloride 105 mmol/L (98-107); Creatinine Clearance Estimated 79 mL/min (50-200); Estimated Glomerular Filt Rate 113 ml/min (>60); GFR (African American) 137 ML/MIN (>60); Glucose 209 mg/dl (74-100); Potassium 3.9 mmoL/L (3.5-5.1); Sodium 134 mmol/L (136-145)
[2021-11-23 07:13] LABS: POC Glucose,Bedside 226 (70-110)
[2021-11-23 08:00] VITALS: BP 132/80; PULSE 79; RESP 18; TEMP 36.6; O2SAT 99
[2021-11-23 09:43] VITALS: BMI 26.4
--- NOTE | 2021-11-23 13:08 | PC.NURSE ---
Pt getting physically violent w/ staff kicking and shoving. Pt not easily redirected. Pt stating get me the fuck out of here, this is a penitentiary, I am in a tomb. I will kill you all if you don't let me leave Just let me go to [facility] . Pt is not oriented to time, pt states the date is August 21, 2044 . He does however know he is at the hospital and he is oriented to himself. Pt does not know his current situation either. MD Dick called at 1229- 5mg IM Haldol Once was ordered. Of note, patient CIWA score @ 1000 was 0 and at 1200 it was 21. Per protocol pt received 2mg IV Ativan as well. @ 1310 pt finally settled down and is sleeping in bed. Pt remains 1:1. Will continue to monitor.
--- NOTE | 2021-11-23 14:12 | SW/DCPLANNER ---
Current Medications Acetaminophen (Acetaminophen 325mg Tab) 650 mg PO Q4HP PRN PRN Reason: Fever or Mild Pain Stop: 12/21/21 00:36 Allopurinol (Allopurinol 300mg Tablet) 300 mg PO DAILY [facility] Stop: 12/22/21 08:59 Last Admin: 11/23/21 08:26 Dose: 300 mg Documented by: Alprazolam (Alprazolam 0.5mg Tablet) 0.5 mg PO BID [facility] Stop: 12/21/21 08:59 Last Admin: 11/23/21 08:27 Dose: 0.5 mg Documented by: Finasteride (Finasteride 5mg Tablet) 5 mg PO HS [facility] Stop: 12/21/21 20:59 Last Admin: 11/22/21 20:09 Dose: 5 mg Documented by: Hydromorphone HCl (Hydromorphone 2mg/Ml Syringe) 0.5 mg IV Q4HP PRN PRN Reason: Severe Pain Stop: 12/21/21 13:49 Last Admin: 11/23/21 03:47 Dose: 0.5 mg Documented by: Insulin Human Lispro (Humalog 100 Units/Ml 3ml Vial (Ssi)) 0 unit SQ [facility]; Protocol Stop: 12/21/21 05:59 Last Admin: 11/23/21 11:20 Dose: 2 unit Documented by: Lorazepam (Lorazepam 2mg/Ml Vial) 2 mg IV Q2HP PRN PRN Reason: CIWA SCORE >8 Stop: 12/23/21 02:59 Last Admin: 11/23/21 12:30 Dose: 2 mg Documented by: Metformin HCl (Metformin 500mg Tablet) 1,000 mg PO BIDWMEAL [facility] Stop: 12/21/21 17:29 Last Admin: 11/23/21 08:26 Dose: 1,000 mg Documented by: Ondansetron HCl (Ondansetron 4mg/2ml Vial) 4 mg IV Q8HP PRN PRN Reason: Nausea Stop: 12/21/21 00:36 Last Admin: 11/22/21 23:30 Dose: 4 mg Documented by: Pantoprazole Sodium (Pantoprazole 40mg Tablet) 40 mg PO HS [facility] Stop: 12/22/21 20:59 Last Admin: 11/22/21 20:10 Dose: 40 mg Documented by: Risperidone (Risperidone 0.5 Mg Tablet) 0.5 mg PO BID [facility] Stop: 12/22/21 20:59 Last Admin: 11/23/21 08:28 Dose: 0.5 mg Documented by: Sodium Chloride (Sodium Chloride 0.9% 10ml Flush Syringe) 10 ml IV NEEDED PRN PRN Reason: Maintain IV Site Stop: 12/21/21 00:36 Last Admin: 11/23/21 02:44 Dose: 10 ml Documented by: Tamsulosin HCl (Tamsulosin 0.4mg Capsule) 0.4 mg PO HS [facility] Stop: 12/22/21 20:59 Last Admin: 11/22/21 20:10 Dose: 0.4 mg Documented by:
--- NOTE | 2021-11-23 14:52 | PC.NURSE ---
Called report to RN @ [facility]. Verified w/ RN that the only other action needed was for COVID and lab results to be faxed for admission and for papers to be signed by environmental services assistant.
--- NOTE | 2021-11-23 15:21 | HMH.DCSUM ---
General - General Admission date:: 11/21/21 <John Oneil - 11/23/21 15:33> 11/21/21 <Salvador Dick - 11/23/21 15:24> Discharge date: 11/23/21 <Salvador Dick - 11/23/21 15:24> HPI HPI: 66-year-old male patient presented to the [facility] emergency department with reports of confusion, weakness, and all over body pain. He does have a history of pancreatic cancer and has stopped his chemo. He denies any alcohol, fever/chills/body aches, nausea/vomiting/diarrhea, or trauma. Patient and sister report he is having a difficult time caring for himself. 11/20/[address]: FINDINGS: Brain: No intracranial hemorrhage. No edema, swelling or mass-effect. There is mild generalized cerebral atrophy. There is chronic white matter disease in both cerebral hemispheres, nonspecific but likely microvascular ischemic changes. Chronic falcine and meningeal calcifications. Cerebral ventricles: Chronic mild ventriculomegaly, likely due to central atrophy. No progressive hydrocephalus compared with the previous exam. Paranasal sinuses: No acute findings in the visualized sinuses. No significant sinus opacification or air-fluid levels. Minimal ethmoid mucosal thickening. Mastoid air cells: Mastoids are unremarkable as visualized, no effusions. Orbital cavities: No acute intraorbital findings. Vasculature: Atherosclerotic calcified plaques in the internal carotid artery siphons. There are multiple tiny gas bubbles seen in the head and neck, in the sella, possibly cavernous sinuses, anterior craniocervical junction and left vertebral artery or transverse foramen, possibly multiple intravascular air bubbles, which could be iatrogenic from intravenous infusions, air embolus, less likely infection or trauma. Bones/joints: No acute skull fracture. No lytic lesions. 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 Soft tissues: There are no soft tissue masses or fluid collections. IMPRESSION: 1. Several tiny intracranial and craniocervical gas bubbles as detailed above, probably iatrogenic from intravenous infusion, air embolus, less likely would be intravascular gas secondary to trauma or infection. 2. There is no CT evidence of intracranial mass, intracranial hemorrhage, or acute infarct. 3. Chronic senescent changes and non emergency findings, as above, with cerebral atrophy, white matter disease, atherosclerotic disease. 4. Additional nonemergency and chronic findings as above. Electronically signed by Rosemary Hsu MD <Salvador Dick - 11/23/21 15:24> Hospital Course Hospital Course: pt was admitted with ivf and was restarted on meds as he was noncompliant - no reported etoh and no fever or trauma - pt with significant hx of pschy issues in past and etoh- no recent etoh reported but has been disruptive and delusional at home with family - has been eval [facility] also - does have hx of pancreatic cancer w/o known mets - has declined chemo at this time - pt was seen in the ed and admitted for eval of altered mental status - in hospital had -increasing delusional behavior and combative with staff - pt with acute 72 hr hold for pschy eval and treatment as pt needs not meet at [facility] pt was seen by rosalina lundberg w patient at his bedside; he was alone today (with the 1:1 staff). -he states that he hasn't been the same person since he took his first drink -it took a hold of him -and he could go a few days without it but always went back -he states that he has been drinking again -couldn't tell me why; or when he started this again -he would walk to the store to get this -states that his depression is lousy -that he doesn't want to live anymore -wants to -cause he is too damn old -and he hurts -he states that 'nobody should live til they are 66' He denies any thoughts to kill himself. -he states that he is in enough pain right now -he doesn't want to
[2021-11-23 22:12] LABS: POC Glucose,Bedside 187 (70-110)
--- NOTE | 2021-11-26 15:12 | CARE MANAGER ---
CM called and spoke with patient's sister, Sanjuana today. Patient remains at [facility]. Per Sanjuana, patient was upset today r/t not being discharged today.
== END 2021-11-23 16:43 ==
LOC: ER 22:41 → 2ND 23:22
PROVIDERS: Nurse Practitioner Family; Admitting Provider Emergency Medicine; Emergency Provider Emergency Medicine; PCP Emergency Medicine; Visit Provider Emergency Medicine
DX: C25.9 Malignant neoplasm of pancreas, unspecified (principal); R41.0 Disorientation, unspecified; R53.1 Weakness; I10 Essential (primary) hypertension; F41.9 Anxiety disorder, unspecified; F32.A Depression, unspecified
CPT/HCPCS: G0378; 36415; 70450; 70551; 71045; 74177; 80048; 80053; 80305; 81001; 82150; 82962; 83036; 83605; 83690; 83735; 84145; 85025; 85651; 86140; 87040; 96365; 96366; 96375; 97162; 97165; 99285; C9803; J2405; Q9967; U0003; U0005

== ENCOUNTER 2022-01-01 06:05 | Inpatient (IN) | payer MEDICARE, OTHER, MEDICAID, SELFPAY ==
[2022-01-01] VITALS (14 sets, daily range): BP systolic 95–137; BP diastolic 61–83; PULSE 59–87; RESP 17–20; TEMP 36.6–39.2; O2SAT 92–100; BMI 25.0; BMI 24.3
[2022-01-01 06:20] LABS: Coronavirus 19, PCR Not Detected (NotDetected); Influenza A, PCR Not Detected (NotDetected); Influenza B, PCR Not Detected (NotDetected)
--- NOTE | 2022-01-01 06:30 | XR_ITS ---
PROCEDURE INFORMATION: Exam: XR Left Elbow Exam date and time: 01/01/2022 7:24 AM Age: 66 years old Clinical indication: Pain; Elbow; Left; Additional info: Fall TECHNIQUE: Imaging protocol: XR Left elbow. Views: 3 or more views. COMPARISON: No relevant prior studies available. FINDINGS: Bones/joints: Normal. Soft tissues: Normal. IMPRESSION: No acute findings.
--- NOTE | 2022-01-01 06:30 | CT_ITS ---
PROCEDURE INFORMATION: Exam: CT Abdomen And Pelvis With Contrast Exam date and time: 01/01/2022 7:13 AM Age: 66 years old Clinical indication: Abdominal tenderness and fever and nausea; Patient HX: HX of pancreatic cancer; Additional info: Fall TECHNIQUE: Imaging protocol: Computed tomography of the abdomen and pelvis with contrast. Radiation optimization: All CT scans at this facility use at least one of these dose optimization techniques: automated exposure control; mA and/or kV adjustment per patient size (includes targeted exams where dose is matched to clinical indication); or iterative reconstruction. Contrast material: ISOVUE; Contrast volume: 75 ml; Contrast route: IV; COMPARISON: CT ABDOMEN PELVIS W CON 11/20/2021 10:04 PM FINDINGS: Tubes, catheters and devices: Biliary stent in situ. Lungs: Areas of right middle and lower lobe atelectasis/consolidation. Liver: Small low-attenuation areas near the dome of the liver. Small amounts of biliary air. Gallbladder and bile ducts: Localized anterior gallbladder wall thickening. Pancreas: Normal. No ductal dilation. Spleen: Normal. No splenomegaly. Adrenal glands: Normal. No mass. Kidneys and ureters: Normal. No hydronephrosis. Stomach and bowel: Unremarkable. No obstruction. No mucosal thickening. Appendix: No evidence of appendicitis. Intraperitoneal space: Unremarkable. No free air. No significant fluid collection. Arteries: Atheromatous vascular calcification. Lymph nodes: Unremarkable. No enlarged lymph nodes. Urinary bladder: Unremarkable as visualized. Reproductive: Prostatic calcifications. Bones/joints: Mild multilevel spondylosis with subtle convex right scoliosis. Old left 9th rib fracture. Soft tissues: Unremarkable. IMPRESSION: 1. Localized anterior gallbladder wall thickening associated with biliary stent and small amounts of biliary air. 2. Small low-attenuation areas near the dome of the liver, more prominent on the present scan compared to 11/20/2021. Possibility of metastases not excluded. 3. Areas of right middle and lower lobe atelectasis/consolidation. 4. Other nonacute findings above.
--- NOTE | 2022-01-01 06:30 | XR_ITS ---
PROCEDURE INFORMATION: Exam: XR Left Forearm Exam date and time: 01/01/2022 7:24 AM Age: 66 years old Clinical indication: Pain; Lower or forearm; Left; Additional info: Fall TECHNIQUE: Imaging protocol: XR Left forearm. Views: 2 views. COMPARISON: No relevant prior studies available. FINDINGS: Bones/joints: Normal. Soft tissues: Normal. IMPRESSION: No acute findings.
--- NOTE | 2022-01-01 06:30 | CT_ITS ---
PROCEDURE INFORMATION: Exam: CT Head Without Contrast Exam date and time: 01/01/2022 7:04 AM Age: 66 years old Clinical indication: Headache; Other: Fall, pain TECHNIQUE: Imaging protocol: Computed tomography of the head without contrast. Radiation optimization: All CT scans at this facility use at least one of these dose optimization techniques: automated exposure control; mA and/or kV adjustment per patient size (includes targeted exams where dose is matched to clinical indication); or iterative reconstruction. COMPARISON: MR HEAD/BRAIN WO CON 11/21/2021 12:54 PM FINDINGS: Brain: Prominent sulci. Patchy hypodensity of the cerebral white matter which are nonspecific but likely secondary to microangiopathic changes. Cerebral ventricles: The ventricles are prominent secondary to diffuse volume loss/atrophy. Paranasal sinuses: Visualized sinuses are unremarkable. No fluid levels. Mastoid air cells: Visualized mastoid air cells are well aerated. Bones/joints: Unremarkable. No acute fracture. Soft tissues: Unremarkable. IMPRESSION: Chronic age related changes but no evidence of acute intracranial pathology.
--- NOTE | 2022-01-01 06:33 | CT_ITS ---
PROCEDURE INFORMATION: Exam: CT Cervical Spine Without Contrast Exam date and time: 01/01/2022 7:07 AM Age: 66 years old Clinical indication: Neck pain; Additional info: Fall TECHNIQUE: Imaging protocol: Computed tomography images of the cervical spine without contrast. Radiation optimization: All CT scans at this facility use at least one of these dose optimization techniques: automated exposure control; mA and/or kV adjustment per patient size (includes targeted exams where dose is matched to clinical indication); or iterative reconstruction. COMPARISON: CT HEAD/BRAIN WO CON 01/01/2022 7:04 AM FINDINGS: Bones/joints: No acute fracture. Normal alignment. Discs/Spinal canal/Neural foramina: No significant disc protrusion. No severe spinal canal stenosis. No significant neural foraminal narrowing. Lungs: Lung apices are normal. Soft tissues: Unremarkable. IMPRESSION: No acute findings involving the cervical spine.
[2022-01-01 06:35] LABS: Basophils % 0.4 % (0.1-2.0); Eosinophils # 0.1 K/mm3 (0.0-0.4); Eosinophils % 1.2 % (0.1-12.0); Hematocrit 29.6 % (42.0-52.0); Hemoglobin 9.6 g/dL (14.1-18.0); Lymphocytes # 0.4 K/mm3 (0.7-4.5); Lymphocytes % 5.1 % (10-50); Mean Corpuscular HGB Conc 32.3 g/dL (31.8-35.4); Mean Corpuscular Hemoglobin 28.3 pg (27.0-31.2); Mean Corpuscular Volume 87.6 fl (80-94); Mean Platelet Volume 8.8 fl (7.4-10.4); Monocytes # 0.3 K/mm3 (0.1-1.0); Monocytes % 3.4 % (1.7-9.3); Neutrophils # 7.3 K/mm3 (1.8-7.8); Neutrophils % 89.9 % (37.0-80.0); Platelet Count 291 K/mm3 (142-424); Red Blood Count 3.38 M/mm3 (4.60-6.20); Red Cell Distribution Width 17.5 % (11.5-17.5); White Blood Count 8.2 K/mm3 (4.8-10.8)
--- NOTE | 2022-01-01 06:39 | HMH.EDFALL ---
ED Disposition Clinical Impression: Severe sepsis with acute organ dysfunction, Acute delirium, Anxiety CAP (community acquired pneumonia) Qualifiers: Laterality: right Lung location: lower lobe of lung Qualified Code(s): J18.9 - Pneumonia, unspecified organism Pancreatic cancer Qualifiers: Pancreatic malignancy location: unspecified Qualified Code(s): C25.9 - Malignant neoplasm of pancreas, unspecified Disposition: Admitted As Inpatient Condition on Discharge: Good Referrals: Salvador Dick MD [Primary Care Provider] - - Critical Care Critical Care Time: No Attestation: On 01/01/22, the high probability of a clinically significant, sudden or life threatening deterioration of the following system(s) required my full and direct attention, intervention and personal management. The time I documented below is in addition to time spent performing reported procedures but includes the following listed in this critical care notation. Medical Decision Making - Medical Records Medical records reviewed: Yes: I reviewed the patient's medical records. - Jerman Inquiry Pt receiving controlled substance: No Vital Signs: 01/01/22 06:19 01/01/22 06:36 01/01/22 07:00 Temperature 102.6 F H Temperature Source Oral Pulse Rate 85 77 Pulse Rate [Apical] 87 Respiratory Rate 20 Blood Pressure 137/81 117/73 Blood Pressure [Right Arm] 125/75 Blood Pressure Mean 97 87 Blood Pressure Mean [Right Arm] 91 Blood Pressure Source [Right Arm] Automatic Cuff Blood Pressure Position [Right Arm] Sitting 02 Sat by Pulse Oximetry 97 95 94 L Oxygen Delivery Method Room Air Room Air Room Air - Lab Data Lab results reviewed: Yes: I reviewed the patient's lab results. Lab Results 01/01/22 06:09: SARS-CoV-2 (PCR) Not detected, Influenza A Untype (PCR) Not detected, Influenza Type B (PCR) Not detected 01/01/22 06:17: WBC 8.2, RBC 3.38 L, Hgb 9.6 L, Hct 29.6 L, MCV 87.6, MCH 28.3, MCHC 32.3, RDW 17.5, Plt Count 291, MPV 8.8, Neut % (Auto) 89.9 H, Lymph % (Auto) 5.1 L, [place] % (Auto) 3.4, Eos % (Auto) 1.2, Baso % (Auto) 0.4, Neut # (Auto) 7.3, Lymph # (Auto) 0.4 L, [place] # (Auto) 0.3, Eos # (Auto) 0.1, Baso # (Auto) 0.0, Total Counted 100, Neutrophils % (Manual) 91 H, Lymphocytes % (Manual) 5 L, Monocytes % (Manual) 4, Platelet Estimate Normal, RBC Morphology Normal, ESR 118 H 01/01/22 06:17: Sodium 133 L, Potassium 4.4, Chloride 105, Carbon Dioxide 20 L, Anion Gap 12.4, BUN 16, Creatinine 0.90, Estimated Creat Clear 75, Estimated GFR 84, Est GFR ( Amer) 102, Glucose 329 H, Calcium 8.8, Total Bilirubin 0.5, AST 53, ALT 92 H, Alkaline Phosphatase 595 H, C-Reactive Protein 47.9 H, Total Protein 5.7 L, Albumin 3.1 L, Globulin 2.6, Albumin/Globulin Ratio 1.2, Amylase < 30 L, Lipase 22 L, Procalcitonin 0.352 01/01/22 06:17: Lactate 2.7 H 01/01/22 06:30: Urine Color Yellow, Urine Appearance Clear, Urine pH 5.5, Ur Specific [place] 1.025, Urine Protein Negative, Urine Glucose (UA) 1+, Urine Ketones Negative, Urine Blood Negative, Urine Nitrate Negative, Urine Bilirubin Negative, Urine Urobilinogen 0.2, Ur Leukocyte Esterase Negative, Urine RBC Occasional, Urine WBC 3-5, Ur Squamous Epith Cells Occasional, Urine Bacteria 2+ Result diagrams: 01/01/22 06:17 01/01/22 06:17 Orders (Tests/Meds): ED MEDICATIONS Generic Name Dose Route Start Last Admin Trade Name Freq PRN Reason Stop Dose Admin Lactated Ringer's 1,000 mls @ 125 mls/hr 01/01/22 08:00 Lactated Ringer's 1000 Ml Bag IV 01/31/22 07:59 .Q8H YOLIE Discontinued Medications Generic Name Dose Route Start Last Admin Trade Name Freq PRN Reason Stop Dose Admin Acetaminophen 1,000 mg 01/01/22 06:27 01/01/22 06:39 Acetaminophen 500mg Tab PO 01/01/22 06:28 1,000 mg ONCE ONE Administration Lactated Ringer's 1,000 mls @ 999 mls/hr 01/01/22 06:30 01/01/22 06:40 Lactated Ringer's 1000 Ml Bag IV 01/01/22 07:30 999 mls/hr .[id number] YOLIE Administratio
--- NOTE | 2022-01-01 06:42 | XR_ITS ---
PROCEDURE INFORMATION: Exam: XR Pelvis Exam date and time: 01/01/2022 7:24 AM Age: 66 years old Clinical indication: Pelvic pain; Additional info: Fall TECHNIQUE: Imaging protocol: XR pelvis. Views: 1 or 2 view. COMPARISON: CT ABDOMEN PELVIS W CON 01/01/2022 7:13 AM FINDINGS: Bones/joints: Unremarkable. No acute fracture. Soft tissues: Unremarkable. IMPRESSION: No acute findings.
--- NOTE | 2022-01-01 06:42 | XR_ITS ---
PROCEDURE INFORMATION: Exam: XR Chest Exam date and time: 01/01/2022 7:24 AM Age: 66 years old Clinical indication: Chest wall pain; Additional info: Fall, fever, HX of cancer TECHNIQUE: Imaging protocol: XR of the chest. Views: 4 or more views. COMPARISON: CR XR CHEST PORTABLE 11/21/2021 6:03 AM FINDINGS: Tubes, catheters and devices: Stable right MediPort catheter. Lungs: Streaky right lower lung atelectasis/airspace disease. Pleural spaces: Unremarkable. No pleural effusion. No pneumothorax. Heart/Mediastinum: Unremarkable. No cardiomegaly. Bones/joints: Unremarkable. Soft tissues: Bilateral axillary clips. IMPRESSION: 1. Right lower lung atelectasis/airspace disease. 2. Stable right MediPort catheter.
[2022-01-01 06:43] LABS: Chloride 105 mmol/L (98-107); Potassium 4.4 mmoL/L (3.5-5.1); Sodium 133 mmol/L (136-145)
--- NOTE | 2022-01-01 06:43 | PC.NURSE ---
Pt ambulated to the BR with staff x1 SBA. He tolerated well, denied any pain with ambulation. 1 soft BM noted at this time and pt was able to provide a urine sample.
[2022-01-01 06:45] LABS: Blood Urea Nitrogen 16 mg/dl (9-20); Creatinine Clearance Estimated 75 mL/min (50-200); Estimated Glomerular Filt Rate 84 ml/min (>60); GFR (African American) 102 ML/MIN (>60)
[2022-01-01 06:46] LABS: Alanine Aminotransferase 92 U/L (12-78); Albumin Level 3.1 g/dl (3.5-5.0); Albumin/Globulin Ratio 1.2 (1.1-1.8); Alkaline Phosphatase 595 U/L (38-126); Amylase < 30 U/L (30-110); Aspartate Amino Transferase 53 U/L (17-59); Bilirubin,Total 0.5 mg/dl (0.2-1.3); Calcium 8.8 mg/dl (8.4-10.2); Carbon Dioxide 20 mmol/L (22.0-30.0); Globulin 2.6 g/dL (1.3-3.2); Glucose 329 mg/dl (74-100); Lipase 22 U/L (23-300); MANUAL DIFFERENTIAL MANUAL DIFFERENTIAL (MANUAL DIFF); Total Protein,Serum 5.7 g/dl (6.3-8.2)
[2022-01-01 06:49] LABS: Anion Gap 12.4 mEq/L (5-15)
[2022-01-01 06:52] LABS: Lactic Acid 2.7 mmol/L (0.7-2.1)
[2022-01-01 06:53] LABS: C-Reactive Protein 47.9 mg/L (0-4)
[2022-01-01 06:56] LABS: Microscopic, Urine URINE MICROSCOPIC (MICROSCOPIC)
[2022-01-01 06:57] LABS: Appearance,Urine CLEAR (Clear); Bilirubin,Urine Negative (Negative); Blood, Urine Negative (Negative); Color,Urine YELLOW (Yellow); Glucose,Urine (UA) 1+ (Negative); Ketones,Urine Negative (Negative); Leukocyte Esterase,Urine Negative (Negative); Nitrate,Urine Negative (Negative); PH,Urine 5.5 (5.0-8.5); Protein,Urine Negative (Negative); Specific Gravity, Urine 1.025 (1.005-1.030); Urobilinogen,Urine 0.2 EU/dl (0.2)
[2022-01-01 07:15] LABS: Erythrocyte Sedimentation Rate 118 mm/hr (0-20)
[2022-01-01 07:17] LABS: RBC,Urine Occasional #/hpf (0-3); Squamous Epithelial Cell,Urine Occasional #/hpf (0-5)
--- NOTE | 2022-01-01 07:17 | PC.NURSE ---
Pt is with rad
[2022-01-01 07:18] LABS: Bacteria,Urine 2+ /lpf
[2022-01-01 07:27] LABS: Procalcitonin 0.352 ng/mL (0.0-2.0)
[2022-01-01 07:35] LABS: Lymphocytes % 5 % (10-50); Monocytes % 4 % (2-9); Neutrophils % 91 % (42-76); Platelet Estimate Normal; Total Cells Counted 100
[2022-01-01 07:36] LABS: RBC Morphology Normal
--- NOTE | 2022-01-01 07:40 | PC.NURSE ---
Pt returned from rad
--- NOTE | 2022-01-01 09:34 | PC.NURSE ---
Contacted CM for admission
--- NOTE | 2022-01-01 10:14 | PC.NURSE ---
waiting gis application developer back from [facility] staff to give report.
--- NOTE | 2022-01-01 10:22 | PC.NURSE ---
report called to prieto wilde rn in [facility], states she will send staff down to transport pt
[2022-01-01 10:30] LABS: Reflex Lactic Add Lactic Reflex
[2022-01-01 11:18] LABS: Lactic Acid Follow Up (RFLX 1) 1.9 mmol/L (0.7-2.1)
--- NOTE | 2022-01-01 11:58 | HMH.PHAVTE ---
[facility] Pharmacy VTE Monitoring - Patient Demographics Admission date: 01/01/22 Report Date: 01/01/22 Time: 11:58 Allergies/Adverse Reactions: Patient Allergies No Known Allergies Allergy (Verified 07/30/21 15:16) Height: 1.7 m Weight: 70.307 kg Patient Problems: Current Active Problems Pancreatic cancer (Acute) Severe sepsis with acute organ dysfunction (Acute) CAP (community acquired pneumonia) (Acute) Acute delirium (Acute) Anxiety (Chronic) - VTE Risk Labs: VTE Related Lab Results Hgb 9.6 g/dL (14.1-18.0) L 01/01/22 06:17 Hct 29.6 % (42.0-52.0) L 01/01/22 06:17 Plt Count 291 K/mm3 (142-424) 01/01/22 06:17 BUN 16 mg/dl (9-20) 01/01/22 06:17 Creatinine 0.90 mg/dl (0.66-1.25) 01/01/22 06:17 Estimated Creat Clear 75 mL/min (50-200) 01/01/22 06:17 VTE Score: 6 VTE Risk Level: Moderate Risk - Prophylaxis VTE Prophylaxis Ordered?: Yes Types of VTE Prophylaxis: TEDS Knee High Location of Applied Device: Bilateral Lower Extremeties
[2022-01-01 15:40] LABS: POC Glucose,Bedside 231 (70-110)
--- NOTE | 2022-01-01 17:10 | HMH.HP ---
*Admission Date: 01/01/22 *Chief complaint: Fall with altered mental status *History of present illness: 66-year-old male patient presents to the [facility] emergency department via EMS for reports of falling down 3 times in the last 2 days, abdominal pain with nausea and fever, and 3 skin tears to left forearm. He reports he has not been feeling well and has been running a fever. He also history of pancreatic cancer Chest x-ray reveals right mid and lower lobe atelectasis He received clindamycin and levofloxacin IV in the ED and is ordered for the floor [facility] History I have reviewed the patient's past medical history: Yes Medical History: Reports:: Anxiety, Cancer (Pancreatic), Depression, Diabetes Mellitus Type 2, Hyperlipidemia, Hypertension Denies:: Diabetes Mellitus Type 1, MRSA *Have you ever received a pneumonia vaccine?: Yes *Have you received a flu vaccine this season?: Yes Other Surgeries: Yes: Appendectomy, Cancer Surgery, Colonoscopy, Other Amputation: No Fractures: No - *Social History Smoking Status: Never smoker Alcohol Intake: former Alcohol Intake Frequency:: 0-2 drinks per day Substance Use Type: marijuana *Occupational Status:: unemployed Housing: house Household Members: family *Travel in the last 8 weeks: None - Psychiatric History Pschychiatric History:: Reports:: Anxiety, Depression, Suicide Attempt (pt states he has tried to harm himself before w/ using etoh) Family Hx:: Unable to obtain Review of Systems - Review of Systems Review of systems:: unable to obtain Unable to fill out patient keeps repeating I want to go home and I am bored - *Neurologic Denies localized weakness, Denies seizure-like activity Meds Home Medications Medication Instructions Recorded Confirmed Type ALPRAZolam [Xanax 0.5mg tab] 0.5 mg PO BID 11/20/21 01/01/22 History Metformin HCl [Metformin 1000mg 1,000 mg PO BID 11/20/21 01/01/22 History Tablets] Pantoprazole Sodium 40 mg PO DAILY 11/20/21 01/01/22 History Zolpidem Tartrate 10 mg PO HS 11/20/21 01/01/22 History allopurinoL [Allopurinol 300mg 300 mg PO DAILY 11/20/21 01/01/22 History tablet] ondansetron HCL [Zofran 4mg Tab*] 4 mg PO TIDP PRN 11/20/21 01/01/22 History Baclofen [Lioresal 10mg tablet] 10 mg PO TIDP PRN 01/01/22 01/01/22 History Docusate Sodium [Docusate Sodium 100 - 200 mg PO DAILY 01/01/22 01/01/22 History 100mg Cap] Doxazosin Mesylate [Cardura 4mg 4 mg PO DAILY 01/01/22 01/01/22 History tablet] Ferrous Sulfate [Ferrous Sulfate 325 mg PO DAILY 01/01/22 01/01/22 History 325mg Tablet] Finasteride [Proscar] 5 mg PO DAILY 01/01/22 01/01/22 History Oxycodone HCl 22.5 mg PO Q4HP PRN 01/01/22 01/01/22 History Potassium Gluconate 1 tab PO DAILY 01/01/22 01/01/22 History Simethicone 250 mg PO BIDP PRN 01/01/22 01/01/22 History polyethylene glycoL 3350 [Miralax 17 gm PO DAILY 01/01/22 01/01/22 History 17gm Packet] Allergies Allergy/AdvReac Type Severity Reaction Status Date / Time No Known Allergies Allergy Verified 07/30/21 15:16 Exam Vital signs and Labs for Last 24 Hours: Temp Pulse Resp BP Pulse Ox 98.1 F 59 L 17 129/83 100 01/01/22 16:00 01/01/22 16:00 01/01/22 16:00 01/01/22 16:00 01/01/22 16:00 Laboratory Results - last 24 hr 01/01/22 06:09: SARS-CoV-2 (PCR) Not detected, Influenza A Untype (PCR) Not detected, Influenza Type B (PCR) Not detected 01/01/22 06:17: WBC 8.2, RBC 3.38 L, Hgb 9.6 L, Hct 29.6 L, MCV 87.6, MCH 28.3, MCHC 32.3, RDW 17.5, Plt Count 291, MPV 8.8, Neut % (Auto) 89.9 H, Lymph % (Auto) 5.1 L, [place] % (Auto) 3.4, Eos % (Auto) 1.2, Baso % (Auto) 0.4, Neut # (Auto) 7.3, Lymph # (Auto) 0.4 L, [place] # (Auto) 0.3, Eos # (Auto) 0.1, Baso # (Auto) 0.0, Total Counted 100, Neutrophils % (Manual) 91 H, Lymphocytes % (Manual) 5 L, Monocytes % (Manual) 4, Platelet Estimate Normal, RBC Morphology Normal, ESR 118 H 01/01/22 06:17: Sodium 133 L, Po
--- NOTE | 2022-01-01 17:20 | PC.NURSE ---
Pt has done fine this shift. Lungs CTA. Sputum cup put on pt's bedside table. Pt verbalized understanding for need for sputum specimen. Tegaderm and kerlix place on pt's skin tear on RUE. No other acute changes.
[2022-01-01 20:51] LABS: POC Glucose,Bedside 149 (70-110)
[2022-01-02 04:00] VITALS: BP 141/87; PULSE 62; RESP 17; TEMP 36.8; O2SAT 97
[2022-01-02 05:01] VITALS: BMI 24.3
[2022-01-02 05:59] LABS: POC Glucose,Bedside 152 (70-110)
--- NOTE | 2022-01-02 06:13 | INFXCTL.NOTE ---
Patient has rested well this shift. Patient has remained on room air. No complaints voiced. No acute events.
[2022-01-02 08:00] VITALS: BP 147/88; PULSE 64; RESP 18; TEMP 36.8; O2SAT 99
[2022-01-02 08:01] LABS: Basophils % 0.2 % (0.1-2.0); Eosinophils # 0.4 K/mm3 (0.0-0.4); Eosinophils % 5.7 % (0.1-12.0); Hematocrit 28.7 % (42.0-52.0); Lymphocytes # 1.1 K/mm3 (0.7-4.5); Lymphocytes % 16.6 % (10-50); Mean Corpuscular HGB Conc 31.2 g/dL (31.8-35.4); Mean Corpuscular Hemoglobin 26.6 pg (27.0-31.2); Mean Corpuscular Volume 85.2 fl (80-94); Mean Platelet Volume 7.8 fl (7.4-10.4); Monocytes # 0.4 K/mm3 (0.1-1.0); Monocytes % 6.1 % (1.7-9.3); Neutrophils # 4.8 K/mm3 (1.8-7.8); Neutrophils % 71.3 % (37.0-80.0); Platelet Count 274 K/mm3 (142-424); Red Blood Count 3.37 M/mm3 (4.60-6.20); Red Cell Distribution Width 15.9 % (11.5-17.5); White Blood Count 6.8 K/mm3 (4.8-10.8)
[2022-01-02 08:15] LABS: Chloride 106 mmol/L (98-107); Potassium 4.5 mmoL/L (3.5-5.1); Sodium 133 mmol/L (136-145)
[2022-01-02 08:18] LABS: Anion Gap 10.5 mEq/L (5-15); Blood Urea Nitrogen 12 mg/dl (9-20); Carbon Dioxide 21 mmol/L (22.0-30.0); Creatinine Clearance Estimated 72 mL/min (50-200); Estimated Glomerular Filt Rate 135 ml/min (>60); GFR (African American) 163 ML/MIN (>60)
[2022-01-02 08:19] LABS: Calcium 8.4 mg/dl (8.4-10.2); Glucose 176 mg/dl (74-100)
--- NOTE | 2022-01-02 09:33 | US_ITS ---
FINAL REPORT CLINICAL HISTORY: abd pain FINDINGS: ULTRASOUND RIGHT UPPER QUADRANT Sonographic imaging of the right upper quadrant was obtained. The liver has increased echogenicity consistent with fatty infiltration. There is a 1.9 x 1.6 cyst in the posterior right lobe of the liver. The gallbladder wall is thickened measuring 6 mm. There are septations within the gallbladder. Sludge and debris are seen within the gallbladder. These findings are concerning for acute cholecystitis. There is intra and extrahepatic biliary ductal dilatation and pneumobilia. The common duct is normal at 4 mm. The pancreas and the right kidney were not visualized due to bowel gas. IMPRESSION: Abnormal appearance of the gallbladder with thickened wall, septations and sludge. Findings are all concerning for acute cholecystitis. Pneumobilia with a mildly distended intra and extrahepatic biliary system. Reviewed, Interpreted and Dictated by Marcos Santoro MD Transcribed by Anum Eaton Authenticated by Marcos Santoro MD on 01/02/2022 01:32:18 PM [facility]
--- NOTE | 2022-01-02 09:49 | SW/DCPLANNER ---
Addendum entered by Denise Jordan 01/04/22 09:40: The plan for this patient is to discharge home today. I will update Ev bryant/ [facility]. Addendum entered by Denise Jordan 01/03/22 10:51: Per Ev bryant/ Hospice: Hospice services have been revoked at this time. I will follow up with Ev once patient is medically stable for discharge. Addendum entered by Denise Jordan 01/03/22 10:10: Updated patient information has been faxed to Ev bryant/ [facility]. Original Note: Per Ev bryant/ [facility] this patient is currently established with Hospice services. Ev has confirmed that patient's admission is related to Hospice diagnosis. I will continue to follow up with Ev until patient is medically stable for discharge. I also spoke with patient's sister (Fabiola) and she stated the plan for this patient is to discharge back home with her. Patient could potentially be ready for discharge later today.
--- NOTE | 2022-01-02 15:08 | P.PN_ITS ---
Internal Medicine - PN: Subj *Date: 01/03/22 *Time: 06:42 Interval history: pt seen this am with abd pain with fever and will need gb eval Exam Vital signs and Labs for Last 24 Hours: Temp Pulse Resp BP Pulse Ox 98.2 F 64 18 147/88 H 99 01/02/22 08:00 01/02/22 08:00 01/02/22 08:00 01/02/22 08:00 01/02/22 08:00 Laboratory Results - last 24 hr 01/01/22 15:32: POC Glucose 231 H 01/01/22 20:44: POC Glucose 149 H 01/02/22 05:35: POC Glucose 152 H 01/02/22 07:45: WBC 6.8, RBC 3.37 L, Hgb 9.0 L, Hct 28.7 L, MCV 85.2, MCH 26.6 L , MCHC 31.2 L, RDW 15.9, Plt Count 274, MPV 7.8, Neut % (Auto) 71.3, Lymph % (Auto) 16.6, [place] % (Auto) 6.1, Eos % (Auto) 5.7, Baso % (Auto) 0.2, Neut # (Auto) 4.8, Lymph # (Auto) 1.1, [place] # (Auto) 0.4, Eos # (Auto) 0.4, Baso # (Auto) 0.0 01/02/22 07:45: Sodium 133 L, Potassium 4.5, Chloride 106, Carbon Dioxide 21 L, Anion Gap 10.5, BUN 12, Creatinine 0.60 L D, Estimated Creat Clear 72, Estimated GFR 135, Est GFR ( Amer) 163 D, Glucose 176 H, Calcium 8.4 I & O for Last 24 hours: Intake & Output 12/31/21 01/01/22 01/02/22 01/03/22 11:59 11:59 11:59 11:59 Intake Total 1080 / 1080 Balance 1080 / 1080 Weight 155 lb 155 lb 0.006 oz Microbiology Reports for the Last 24 Hours: Microbiology 01/01/22 06:30 Urine,Clean Catch Urine Culture - Preliminary NO GROWTH AFTER 24 HOURS - Constitutional no acute distress - *Routine HEENT Exam Head: Present: normocephalic Eye: Present: EOMI, PERRL ENT: Present: mucous membranes dry - *Routine Neck Exam Present: supple. Absent: JVD - *Routine Respiratory Exam Present: CTA bilaterally - *Routine Cardiovascular Exam Present: RRR, murmur - *Routine Abdominal Exam Present: soft, tenderness. Absent: distended - *Routine Extremities Exam Absent: calf tenderness - *Routine Skin Exam Present: intact - *Routine Neurological Exam Present: alert - Routine Psychiatric Exam Present: cooperative Assessment and Plan (1) CAP (community acquired pneumonia) Start date: 01/01/22 Status: Acute Qualifiers: Laterality: right Lung location: lower lobe of lung Qualified Code(s): J18.9 - Pneumonia, unspecified organism Category: Medical Code(s): J18.9 - Pneumonia, unspecified organism (2) Pancreatic cancer Status: Acute Qualifiers: Pancreatic malignancy location: unspecified Qualified Code(s): C25.9 - Malignant neoplasm of pancreas, unspecified Category: Medical Code(s): C25.9 - Malignant neoplasm of pancreas, unspecified (3) Severe sepsis with acute organ dysfunction Status: Acute Category: Medical Code(s): A41.9 - Sepsis, unspecified organism; R65.20 - Severe sepsis without septic shock (4) Altered mental status Status: Acute Qualifiers: Altered mental status type: disorientation Qualified Code(s): R41.0 - D isorientation, unspecified Category: Medical Code(s): R41.82 - Altered mental status, unspecified (5) Acute cholecystitis Status: Acute Category: Medical Code(s): K81.0 - Acute cholecystitis
--- NOTE | 2022-01-02 15:51 | HMH.GSCON ---
*Admission Date: 01/01/22 *Reason for consult:: Cholecystitis *History of present illness: This is a 66-year-old gentleman seen in consultation from Dr. Dick for evaluation regarding cholecystitis. He was recently admitted after evaluation in the emergency department status post fall. He was diagnosed with pneumonia. Additional complaints include abdominal pain and nausea. A CT scan revealed anterior gallbladder wall thickening and presence of a biliary stent. Follow-up ultrasound revealed a 6 mm wall with sludge. Mild biliary distention noted. The patient does have a known history of pancreatic cancer and is status post ERCP with stent placement. He states that he was diagnosed approximately 6 months ago and has yet to complete chemotherapy. Review of Systems - Constitutional Denies chills - *Cardiovascular Denies chest pain - *Respiratory Denies cough - *Gastrointestinal Reports abdominal pain, Reports nausea - *Neurologic Denies localized weakness, Denies seizure-like activity [facility] History Medical History: Reports:: Anxiety, Cancer (Pancreatic), Depression, Diabetes Mellitus Type 2, Hyperlipidemia, Hypertension Denies:: Diabetes Mellitus Type 1, MRSA *Have you ever received a pneumonia vaccine?: Yes *Have you received a flu vaccine this season?: Yes Other Surgeries: Yes: Appendectomy, Cancer Surgery, Colonoscopy, Other Amputation: No Fractures: No - *Social History Smoking Status: Never smoker Alcohol Intake: former Alcohol Intake Frequency:: 0-2 drinks per day Substance Use Type: marijuana *Occupational Status:: unemployed Housing: house Household Members: family *Travel in the last 8 weeks: None - Psychiatric History Pschychiatric History:: Reports:: Anxiety, Depression, Suicide Attempt (pt states he has tried to harm himself before w/ using etoh) Family Hx:: Unable to obtain Meds Home Medications Medication Instructions Recorded Confirmed Type ALPRAZolam [Xanax 0.5mg tab] 0.5 mg PO BID 11/20/21 01/01/22 History Metformin HCl [Metformin 1000mg 1,000 mg PO BID 11/20/21 01/01/22 History Tablets] Pantoprazole Sodium 40 mg PO DAILY 11/20/21 01/01/22 History Zolpidem Tartrate 10 mg PO HS 11/20/21 01/01/22 History allopurinoL [Allopurinol 300mg 300 mg PO DAILY 11/20/21 01/01/22 History tablet] ondansetron HCL [Zofran 4mg Tab*] 4 mg PO TIDP PRN 11/20/21 01/01/22 History Baclofen [Lioresal 10mg tablet] 10 mg PO TIDP PRN 01/01/22 01/01/22 History Docusate Sodium [Docusate Sodium 100 - 200 mg PO DAILY 01/01/22 01/01/22 History 100mg Cap] Doxazosin Mesylate [Cardura 4mg 4 mg PO DAILY 01/01/22 01/01/22 History tablet] Ferrous Sulfate [Ferrous Sulfate 325 mg PO DAILY 01/01/22 01/01/22 History 325mg Tablet] Finasteride [Proscar] 5 mg PO DAILY 01/01/22 01/01/22 History Oxycodone HCl 22.5 mg PO Q4HP PRN 01/01/22 01/01/22 History Potassium Gluconate 1 tab PO DAILY 01/01/22 01/01/22 History Simethicone 250 mg PO BIDP PRN 01/01/22 01/01/22 History polyethylene glycoL 3350 [Miralax 17 gm PO DAILY 01/01/22 01/01/22 History 17gm Packet] Allergies Allergy/AdvReac Type Severity Reaction Status Date / Time No Known Allergies Allergy Verified 07/30/21 15:16 Exam Vital signs and Labs for Last 24 Hours: Temp Pulse Resp BP Pulse Ox 98.2 F 64 18 147/88 H 99 01/02/22 08:00 01/02/22 08:00 01/02/22 08:00 01/02/22 08:00 01/02/22 08:00 Laboratory Results - last 24 hr 01/01/22 20:44: POC Glucose 149 H 01/02/22 05:35: POC Glucose 152 H 01/02/22 07:45: WBC 6.8, RBC 3.37 L, Hgb 9.0 L, Hct 28.7 L, MCV 85.2, MCH 26.6 L, MCHC 31.2 L, RDW 15.9, Plt Count 274, MPV 7.8, Neut % (Auto) 71.3, Lymph % (Auto) 16.6, [place] % (Auto) 6.1, Eos % (Auto) 5.7, Baso % (Auto) 0.2, Neut # (Auto) 4.8, Lymph # (Auto) 1.1, [place] # (Auto) 0.4, Eos # (Auto) 0.4, Baso # (Auto) 0.0 01/02/22 07:45: Sodium 133 L, Potassium 4.5, Chloride 106, Carbon Dioxide 21 L, Anion Gap 10.5, BUN 12, Creatinine 0
[2022-01-02 16:00] VITALS: BP 122/90; PULSE 50; RESP 12; TEMP 36.3; O2SAT 98
--- NOTE | 2022-01-02 19:00 | PC.NURSE ---
Pt has slept majority of this shift. Pt remains on RA. He has had a fair appetite today. Pt's sister has been updated on POC. No other acute changes.
[2022-01-02 20:00] VITALS: BP 116/73; PULSE 56; RESP 18; TEMP 36.7; O2SAT 97
[2022-01-03] VITALS (27 sets, daily range): BP systolic 113–161; BP diastolic 68–98; PULSE 52–73; RESP 14–20; TEMP 36.6–43; O2SAT 92–99
[2022-01-03 08:04] LABS: POC Glucose,Bedside 211 (70-110)
[2022-01-03 08:04] LABS: POC Glucose,Bedside 119 (70-110)
[2022-01-03 08:04] LABS: POC Glucose,Bedside 301 (70-110)
[2022-01-03 08:04] LABS: POC Glucose,Bedside 163 (70-110)
--- NOTE | 2022-01-03 08:26 | PC.NURSE ---
Pt to surgery @ 2434
--- NOTE | 2022-01-03 09:14 | HMH.ACPN2 ---
Internal Medicine - PN: Subj *Date: 01/04/22 *Time: 05:26 Interval history: pt to have surg today Exam Vital signs and Labs for Last 24 Hours: Temp Pulse Resp BP Pulse Ox 97.9 F 52 L 17 117/78 97 01/03/22 04:00 01/03/22 04:00 01/03/22 04:00 01/03/22 04:00 01/03/22 04:00 Laboratory Results - last 24 hr 01/02/22 12:32: POC Glucose 211 H 01/02/22 16:26: POC Glucose 163 H 01/02/22 21:55: POC Glucose 301 H* 01/03/22 05:28: POC Glucose 119 H I & O for Last 24 hours: Intake & Output 12/31/21 01/01/22 01/02/22 01/03/22 11:59 11:59 11:59 11:59 Intake Total 1080 / 1080 240 / 240 Balance 1080 / 1080 240 / 240 Weight 155 lb 155 lb 0.006 oz Microbiology Reports for the Last 24 Hours: Microbiology 01/01/22 06:30 Urine,Clean Catch Urine Culture - Final NO GROWTH AFTER 48 HOURS 01/01/22 06:17 Blood Blood Culture - Preliminary NO GROWTH AFTER 48 HOURS 01/01/22 06:17 Blood Blood Culture - Preliminary NO GROWTH AFTER 48 HOURS - Constitutional no acute distress - *Routine HEENT Exam Head: Present: normocephalic Eye: Present: EOMI, PERRL ENT: Present: mucous membranes dry - *Routine Neck Exam Absent: JVD - *Routine Respiratory Exam Present: decreased breath sounds - *Routine Cardiovascular Exam Present: RRR - *Routine Abdominal Exam Present: soft, tenderness - *Routine Extremities Exam Absent: calf tenderness - *Routine Skin Exam Present: intact - *Routine Neurological Exam Present: alert - Routine Psychiatric Exam Present: normal affect Assessment and Plan (1) CAP (community acquired pneumonia) Start date: 01/01/22 Status: Acute Qualifiers: Laterality: right Lung location: lower lobe of lung Qualified Code(s): J18.9 - Pneumonia, unspecified organism Category: Medical Code(s): J18.9 - Pneumonia, unspecified organism (2) Pancreatic cancer Status: Acute Qualifiers: Pancreatic malignancy location: unspecified Qualified Code(s): C25.9 - Malignant neoplasm of pancreas, unspecified Category: Medical Code(s): C25.9 - Malignant neoplasm of pancreas, unspecified (3) Severe sepsis with acute organ dysfunction Status: Acute Category: Medical Code(s): A41.9 - Sepsis, unspecified organism; R65.20 - Severe sepsis without septic shock (4) Altered mental status Status: Acute Qualifiers: Altered mental status type: disorientation Qualified Code(s): R41.0 - Disorientation, unspecified Category: Medical Code(s): R41.82 - Altered mental status, unspecified (5) Acute cholecystitis Status: Acute Category: Medical Code(s): K81.0 - Acute cholecystitis
--- NOTE | 2022-01-03 10:04 | P.OP_ITS ---
Date of procedure: 01/03/22 Pre-op Diagnosis:: Acute cholecystitis Post-op Diagnosis:: Acute cholecystitis (purulent) Procedure performed:: Laparoscopic cholecystectomy Surgeon:: Torin Byrne MD SENIOR IT RECRUITER:: Brandon Dahl Anesthesia: GETA Estimated blood loss (mL): 25 Operative findings:: Severe acute cholecystitis with wall thickening, fat stranding, and purulent fluid within lumen Operative note:: After informed consent was obtained, the patient was taken to the operating room and placed in the supine position. General anesthesia was induced and the abdomen was prepped and draped in a sterile fashion. After infiltration with local anesthetic an infraumbilical incision was made. A Veress needle was placed in position. The abdomen was insufflated. A 5 mm optical trocar was placed in position. Under direct visualization, a 12 mm trocar was placed in the subxiphoid position and 2 additional 5 mm trocars were placed in the right upper quadrant. The gallbladder was elevated. Severe inflammation confirmed. Wall thickening, acute inflammatory changes, and severe fat stranding to surrounding tissue noted. A combination of blunt dissection and harmonic roman was utilized to carefully take down the adhesed omentum. No obvious sign of bowel injury noted. The infundibulum was severely thickened. The tissue around the cystic duct was carefully dissected with a combination of blunt dissection and harmonic roman. Transection at the infundibulum was completed with harmonic roman and Endoloops (x2) were utilized to secure the stump. Harmonic roman were then utilized to dissect the gallbladder away from the liver margin with careful attention to the control of the cystic artery. The gallbladder was placed in a retrieval bag and removed through the subxiphoid trocar site. The right upper quadrant was thoroughly irrigated. No active bleeding or bile leak was noted. Fascia at the subxiphoid trocar site was reapproximated utilizing 0 Ethibond. The remaining trocars were removed. All wounds were irrigated and skin was closed with 4-0 Monocryl in a subcuticular fashion. Steri-Strips were applied. The patient's anesthetic agents were reversed and extubation was completed prior to transfer to recovery in stable condition. Condition: stable Disposition: PACU Specimens:: Gallbladder Complications:: No immediate
--- NOTE | 2022-01-03 10:10 | HMH.ANESCL ---
[facility] Anesthesia Checklist - Patient Identification Patient Identification: Arm Band - Structural Data Admitted From: Inpatient Planned Operative Procedure/s: Laparoscopic Cholecystectomy Consent for Planned Operative Procedure(s) Verified: Yes Verified Documents: Surgical Consent, History and Physical - NPO Status Verified Time NPO: 00:00 - Additional verifications Anesthesia Reactions: No - Airway Assessment C-Spine Mobility Assessed: Yes (mp2) TMJ Mobility Assessed: Yes Dentition: Good Dentition - Neurological Assessment Level of Consciousness: Awake, Alert - Anesthesia Plan Anesthesia Risk discussed: Yes Anesthesia Plan: Verified ASA Class: III Anesthesia Type: General [facility] History I have reviewed the patient's past medical history: Yes Medical History: Reports:: Anxiety, Cancer (Pancreatic), Depression, Diabetes Mellitus Type 2, Hyperlipidemia, Hypertension Denies:: Diabetes Mellitus Type 1, MRSA *Have you ever received a pneumonia vaccine?: Yes *Have you received a flu vaccine this season?: Yes Anesthesia experience/problems:: nac Other Surgeries: Yes: Appendectomy, Cancer Surgery, Colonoscopy, Other Amputation: No Fractures: No - *Social History Smoking Status: Never smoker Alcohol Intake: former Alcohol Intake Frequency:: 0-2 drinks per day Substance Use Type: marijuana *Occupational Status:: unemployed Housing: house Household Members: family *Travel in the last 8 weeks: None - Psychiatric History Pschychiatric History:: Reports:: Anxiety, Depression, Suicide Attempt (pt states he has tried to harm himself before w/ using etoh) Family Hx:: Unable to obtain
--- NOTE | 2022-01-03 10:11 | P.PN_ITS ---
[facility] Anesthesia Record Part I Intake, IV Amount: 1,200 Estimated blood loss (mL): 10 Urine output (mL): 0 Blood Pressure: 136/90 SaO2: 93 Pulse Rate: 73 Respiratory Rate: 16 Temperature: 99 F Patient is:: Drowsy, Stable Stable to PACU at:: 10:05
[2022-01-03 11:49] LABS: POC Glucose,Bedside 179 (70-110)
--- NOTE | 2022-01-03 13:16 | P.PN_ITS ---
[facility] Anesthesia Record Part II Discharge Time: 10:30 Destination: Intensive Care Unit PACU nurse assessment reviewed?: Yes Patient Condition:: Good Anesthesia Complications:: None Swallowing reflex intact?: Yes Cyanosis?: No Blood Pressure: 113/70 Pulse Rate: 60 Temperature: 99 F Mental Status: Alert & Oriented Pain level:: 0 Nausea and/or vomitting:: None Intake, IV Amount: 0
[2022-01-03 16:26] LABS: POC Glucose,Bedside 181 (70-110)
[2022-01-04 04:00] VITALS: BP 126/81; PULSE 66; RESP 15; TEMP 37.7; O2SAT 92
[2022-01-04 04:33] LABS: POC Glucose,Bedside 224 (70-110)
[2022-01-04 05:32] VITALS: BMI 26.4
[2022-01-04 07:33] LABS: POC Glucose,Bedside 148 (70-110)
[2022-01-04 08:00] VITALS: BP 139/81; PULSE 82; RESP 20; TEMP 36.3; O2SAT 93
--- NOTE | 2022-01-04 08:34 | HMH.GSPN ---
Subjective Patient reports: still having pain Progress Note: A&P (1) CAP (community acquired pneumonia) Status: Acute (2) Pancreatic cancer Status: Acute (3) Severe sepsis with acute organ dysfunction Status: Acute (4) Altered mental status Status: Acute (5) Acute cholecystitis Status: Acute Assessment and plan: Overall, doing fairly well status post laparoscopic cholecystectomy. Likely discharge home later today with close outpatient follow-up. Complete course of Augmentin. Exam Vital signs and Labs for Last 24 Hours: Temp Pulse Resp BP Pulse Ox 99.9 F H 66 15 126/81 92 L 01/04/22 04:00 01/04/22 04:00 01/04/22 04:00 01/04/22 04:00 01/04/22 04:00 Laboratory Results - last 24 hr 01/03/22 11:37: POC Glucose 179 H 01/03/22 16:15: POC Glucose 181 H 01/03/22 20:59: POC Glucose 224 H 01/04/22 05:21: POC Glucose 148 H I & O for Last 24 hours: Intake & Output 01/01/22 01/02/22 01/03/22 01/04/22 11:59 11:59 11:59 11:59 Intake Total 1080 / 1080 1440 / 1440 480 / 480 Balance 1080 / 1080 1440 / 1440 480 / 480 Weight 155 lb 155 lb 0.006 oz 168 lb 11.2 oz Microbiology Reports for the Last 24 Hours: Microbiology 01/01/22 06:30 Urine,Clean Catch Urine Culture - Final NO GROWTH AFTER 48 HOURS 01/01/22 06:17 Blood Blood Culture - Preliminary NO GROWTH AFTER 48 HOURS 01/01/22 06:17 Blood Blood Culture - Preliminary NO GROWTH AFTER 48 HOURS - Constitutional no acute distress - *Routine Respiratory Exam Absent: respiratory distress - *Routine Cardiovascular Exam Absent: tachycardia - *Routine Abdominal Exam Comments: Dressings in place. No cellulitis.
--- NOTE | 2022-01-04 13:21 | HMH.DCSUM ---
General - General Admission date:: 01/01/22 Discharge date: 01/04/22 HPI HPI: 66-year-old male patient presents to the [facility] emergency department via EMS for reports of falling down 3 times in the last 2 days, abdominal pain with nausea and fever, and 3 skin tears to left forearm. He reports he has not been feeling well and has been running a fever. He also history of pancreatic cancer Chest x-ray reveals right mid and lower lobe atelectasis He received clindamycin and levofloxacin IV in the ED and is ordered for the floor Hospital Course Hospital Course: pt was admitted with ivf and abx andwas found to have abn gb on u/s and had surg consult- a 66-year-old gentleman seen in consultation from Dr. Dick for evaluation regarding cholecystitis. He was recently admitted after evaluation in the emergency department status post fall. He was diagnosed with pneumonia. Additional complaints include abdominal pain and nausea. A CT scan revealed anterior gallbladder wall thickening and presence of a biliary stent. Follow-up ultrasound revealed a 6 mm wall with sludge. Mild biliary distention noted. The patient does have a known history of pancreatic cancer and is status post ERCP with stent placement. He states that he was diagnosed approximately 6 months ago and has yet to complete chemotherapy. the etiology of the patient's symptoms is likely multifactorial. Pneumobilia and mild biliary distention likely secondary to stent. He does have gallbladder wall thickening and biliary sludge, as well as, persistent right upper quadrant pain with nausea. Although his history of pancreatic cancer and ERCP/stent placement confounds the picture, his current symptomatology is consistent with possible acute cholecystitis. He will be scheduled for laparoscopic cholecystectomy to be completed tomorrow. date of procedure: 01/03/22 Pre-op Diagnosis:: Acute cholecystitis Post-op Diagnosis:: Acute cholecystitis (purulent) Procedure performed:: Laparoscopic cholecystectomy pt has did well after surg with stable exam except pain and will be d/c on abx and pain meds and close op follow up Objective Vital signs: Temp Pulse Resp BP Pulse Ox 97.3 F L 82 20 139/81 93 L 01/04/22 08:00 01/04/22 08:00 01/04/22 08:00 01/04/22 08:00 01/04/22 08:00 no acute distress - *Routine HEENT Exam Head: Present: normocephalic Eye: Present: EOMI, PERRL ENT: Present: mucous membranes moist - *Routine Neck Exam Absent: JVD - *Routine Respiratory Exam Present: decreased breath sounds - *Routine Cardiovascular Exam Present: RRR - *Routine Abdominal Exam Present: soft, other (sites clear ) - *Routine Extremities Exam Absent: calf tenderness - *Routine Skin Exam Present: intact - *Routine Neurological Exam Present: alert, CN II-XII intact - Routine Psychiatric Exam Present: normal affect Results Labs on day of discharge: Labs from last 24 hours 01/04/22 01/03/22 01/03/22 05:21 20:59 16:15 POC Glucose 148 H 224 H 181 H Preliminary micro results at discharge 01/01/22 06:17 Blood Culture - Preliminary Blood NO GROWTH AFTER 48 HOURS 01/01/22 06:17 Blood Culture - Preliminary Blood NO GROWTH AFTER 48 HOURS DS: Diagnosis - Discharge Diagnosis (1) CAP (community acquired pneumonia) Status: Acute (2) Pancreatic cancer Status: Acute (3) Severe sepsis with acute organ dysfunction Status: Acute (4) Altered mental status Status: Acute (5) Acute cholecystitis Status: Acute Discharge Plan - Patient Discharge Instructions ACTIVITY: Continue current activity DIET: continue same diet - Follow up Plan Follow up with: Torin Byrne MD [Staff Physician] - (1-2 weeks) Disposition: Home, Self-Care Condition at discharge:: Improved Home Medications: Home Medications Medication Instructions Recorded C
[2022-01-04 16:00] VITALS: BP 145/83; PULSE 65; RESP 20; TEMP 36.4; O2SAT 97
--- NOTE | 2022-01-04 17:51 | PC.NURSE ---
PT IS RESTING IN BED. PT HAS BEEN DISCHARGED. WAITING FOR RIDE. PT TOLERATED TAKING A SHOWER THIS SHIFT. PT WAS MEDICATED FOR PAIN PER MAR THIS MORNING. LUNG SOUNDS CLEAR. ABDOMEN SOFT/TENDER WITH DRESSINGS NOTED TO SURGICAL SITES C/D/I. NO SWELLING NOTED TO BLE. WILL CONTINUE TO MONITOR.
== END 2022-01-04 18:30 | disposition home or self-care (01) | DRG 417 ==
LOC: ER 09:31 → ICU 11:06 → 2ND 01-03 17:53
PROVIDERS: Surgery; Admitting Provider Emergency Medicine; Emergency Provider Emergency Medicine; PCP Emergency Medicine; Visit Provider Emergency Medicine
PROC: 0FT44ZZ Resection of Gallbladder, Percutaneous Endoscopic Approach (ICD-10-PCS; CPT 47562; principal; 2022-01-03 12:00)
DX: K81.0 Acute cholecystitis (principal); J18.9 Pneumonia, unspecified organism; C25.9 Malignant neoplasm of pancreas, unspecified; F41.9 Anxiety disorder, unspecified; F32.A Depression, unspecified; E11.9 Type 2 diabetes mellitus without complications; E78.5 Hyperlipidemia, unspecified; I10 Essential (primary) hypertension
CPT/HCPCS: 47562; 36415; 70450; 71045; 72125; 72170; 73080; 73090; 74177; 76705; 80048; 80053; 81001; 82150; 82962; 83605; 83690; 84145; 85007; 85025; 85651; 86140; 87040; 87086; 88304; 96375; 99285; C9803; J1956; J2405; J2543; J2710; Q9967; U0003; U0005

== ENCOUNTER → 2022-01-16 15:09 | Outpatient (CLI) | payer MEDICARE, MEDICAID, SELFPAY ==
[2022-01-16 15:15] LABS: MANUAL DIFFERENTIAL MANUAL DIFFERENTIAL (MANUAL DIFF)
[2022-01-16 16:01] LABS: Basophils # 0.3 K/mm3 (0-0.2); Basophils % 3.5 % (0.1-2.0); Eosinophils # 0.5 K/mm3 (0.0-0.4); Eosinophils % 6.8 % (0.1-12.0); Hematocrit 34.6 % (42.0-52.0); Hemoglobin 10.6 g/dL (14.1-18.0); Lymphocytes # 1.7 K/mm3 (0.7-4.5); Mean Corpuscular HGB Conc 30.6 g/dL (31.8-35.4); Mean Corpuscular Hemoglobin 26.4 pg (27.0-31.2); Mean Corpuscular Volume 86.4 fl (80-94); Mean Platelet Volume 8.1 fl (7.4-10.4); Monocytes # 0.3 K/mm3 (0.1-1.0); Neutrophils # 4.5 K/mm3 (1.8-7.8); Neutrophils % 62.7 % (37.0-80.0); Platelet Count 476 K/mm3 (142-424); Red Cell Distribution Width 17.1 % (11.5-17.5); White Blood Count 7.2 K/mm3 (4.8-10.8)
[2022-01-16 16:05] LABS: Chloride 105 mmol/L (98-107); Potassium 5.2 mmoL/L (3.5-5.1); Sodium 137 mmol/L (136-145)
[2022-01-16 16:08] LABS: Alanine Aminotransferase 24 U/L (12-78); Albumin Level 2.8 g/dl (3.5-5.0); Albumin/Globulin Ratio 1.1 (1.1-1.8); Alkaline Phosphatase 513 U/L (38-126); Anion Gap 10.2 mEq/L (5-15); Aspartate Amino Transferase 36 U/L (17-59); Bilirubin,Total 0.3 mg/dl (0.2-1.3); Blood Urea Nitrogen 14 mg/dl (9-20); Carbon Dioxide 27 mmol/L (22.0-30.0); Estimated Glomerular Filt Rate 67 ml/min (>60); GFR (African American) 81 ML/MIN (>60); Globulin 2.6 g/dL (1.3-3.2); Total Protein,Serum 5.4 g/dl (6.3-8.2)
[2022-01-16 16:09] LABS: Calcium 8.8 mg/dl (8.4-10.2); Glucose 164 mg/dl (74-100)
[2022-01-16 18:48] LABS: Eosinophils % 2 % (0-3); Hypochromasia 1+; Lymphocytes % 18 % (10-50); Monocytes % 2 % (2-9); Neutrophils % 78 % (42-76); Platelet Estimate Slight Increase; Total Cells Counted 100
== END ==
PROVIDERS: PCP Emergency Medicine; Visit Provider Surgery
DX: K81.0 Acute cholecystitis (principal)
CPT/HCPCS: 36415; 80053; 85007; 85014; 85018; 85048; 85049

== ENCOUNTER 2022-02-10 19:48 | Inpatient (IN) | payer OTHER, MEDICARE, MEDICAID, SELFPAY ==
[2022-02-10] VITALS (10 sets, daily range): BP systolic 111–156; BP diastolic 71–99; PULSE 93–107; RESP 16–23; TEMP 39.1; O2SAT 94–98; BMI 21.2
--- NOTE | 2022-02-10 19:39 | XR_ITS ---
PROCEDURE INFORMATION: Exam: XR Chest Exam date and time: 02/10/2022 8:32 PM Age: 66 years old Clinical indication: Sternal or substernal pain; Patient HX: PT has pancreatic cancer; Additional info: Chest pain TECHNIQUE: Imaging protocol: XR of the chest. Views: 1 view. COMPARISON: CR XR CHEST AP 01/01/2022 7:24 AM FINDINGS: Tubes, catheters and devices: There is a right MediPort catheter with its tip in the superior vena cava. Multiple clips are identified within the axillary regions. This could be on the basis of prior lymph node sampling in these locations. Lungs: Limited inspiration. Linear zones of atelectasis noted at the right lung base. Overall aeration of the right lung base appears improved since 01/01/2022. No acute consolidation. Pleural spaces: Unremarkable. No pleural effusion. No pneumothorax. Heart/Mediastinum: Heart size is normal. The superior mediastinum is not widened. Bones/joints: Unremarkable. IMPRESSION: No acute intrathoracic disease.
[2022-02-10 19:47] LABS: Microscopic, Urine URINE MICROSCOPIC (MICROSCOPIC)
[2022-02-10 19:49] LABS: Appearance,Urine CLEAR (Clear); Blood, Urine Negative (Negative); Color,Urine DK YELLOW (Yellow); Glucose,Urine (UA) 3+ (Negative); Ketones,Urine Negative (Negative); Leukocyte Esterase,Urine Negative (Negative); Nitrate,Urine Negative (Negative); PH,Urine 5.5 (5.0-8.5); Protein,Urine Negative (Negative); Specific Gravity, Urine 1.015 (1.005-1.030); Urobilinogen,Urine 0.2 EU/dl (0.2)
[2022-02-10 19:50] LABS: Bilirubin,Urine 2+ (Negative)
--- NOTE | 2022-02-10 19:54 | HMH.EDFEV ---
ED Disposition Clinical Impression: Severe sepsis with acute organ dysfunction, Febrile illness, acute Pancreatic cancer Qualifiers: Pancreatic malignancy location: unspecified Qualified Code(s): C25.9 - Malignant neoplasm of pancreas, unspecified Disposition: Admitted As Inpatient Condition on Discharge: Serious - Critical Care Critical Care Time: No Attestation: On , the high probability of a clinically significant, sudden or life threatening deterioration of the following system(s) required my full and direct attention, intervention and personal management. The time I documented below is in addition to time spent performing reported procedures but includes the following listed in this critical care notation. Medical Decision Making - Medical Records Medical records reviewed: Yes: I reviewed the patient's medical records. - Jerman Inquiry Pt receiving controlled substance: No Vital Signs: 02/10/22 19:08 02/10/22 19:30 02/10/22 20:00 Temperature 102.3 F H Temperature Source Rectal Pulse Rate Pulse Rate [Left Radial] 107 H Respiratory Rate 21 22 23 Blood Pressure 118/71 127/82 Blood Pressure [Right Arm] 120/88 Blood Pressure Mean [Right Arm] 98 Blood Pressure Source [Right Arm] Automatic Cuff 02 Sat by Pulse Oximetry 94 L 98 97 Oxygen Delivery Method Room Air Room Air Room Air 02/10/22 21:00 02/10/22 21:30 02/10/22 22:00 Temperature Temperature Source Pulse Rate 100 H 93 H 95 H Pulse Rate [Left Radial] Respiratory Rate 22 19 22 Blood Pressure 156/88 H 133/99 H 146/89 H Blood Pressure [Right Arm] Blood Pressure Mean [Right Arm] Blood Pressure Source [Right Arm] 02 Sat by Pulse Oximetry 98 98 97 Oxygen Delivery Method Room Air Room Air Room Air 02/10/22 22:28 02/10/22 22:30 02/10/22 23:00 Temperature Temperature Source Pulse Rate 95 H Pulse Rate [Left Radial] Respiratory Rate 19 16 21 Blood Pressure 116/77 117/75 111/78 Blood Pressure [Right Arm] Blood Pressure Mean [Right Arm] Blood Pressure Source [Right Arm] 02 Sat by Pulse Oximetry 97 96 95 Oxygen Delivery Method Room Air Room Air Room Air 02/10/22 23:30 02/11/22 00:00 Temperature Temperature Source Pulse Rate 84 Pulse Rate [Left Radial] Respiratory Rate 17 22 Blood Pressure 115/78 107/76 L Blood Pressure [Right Arm] Blood Pressure Mean [Right Arm] Blood Pressure Source [Right Arm] 02 Sat by Pulse Oximetry 96 98 Oxygen Delivery Method Room Air Room Air - Lab Data Lab results reviewed: Yes: I reviewed the patient's lab results. Lab Results 02/10/22 19:27: Urine Color Dk yellow, Urine Appearance Clear, Urine pH 5.5, Ur Specific [place] 1.015, Urine Protein Negative, Urine Glucose (UA) 3+, Urine Ketones Negative, Urine Blood Negative, Urine Nitrate Negative, Urine Bilirubin 2+ A, Urine Urobilinogen 0.2, Ur Leukocyte Esterase Negative, Urine RBC 3-5, Urine WBC 5-10, Ur Squamous Epith Cells 3-5, Urine Bacteria Trace 02/10/22 19:46: WBC 14.0 H, RBC 4.57 L, Hgb 12.0 L, Hct 38.5 L, MCV 84.3, MCH 26.4 L, MCHC 31.3 L, RDW 17.8 H, Plt Count 288, MPV 8.3, Neut % (Auto) 93.2 H, Lymph % (Auto) 2.0 L, [place] % (Auto) 3.0, Eos % (Auto) 1.6, Baso % (Auto) 0.4, Neut # (Auto) 13.1 H, Lymph # (Auto) 0.3 L, [place] # (Auto) 0.4, Eos # (Auto) 0.2, Baso # (Auto) 0.1, Total Counted 100, Neutrophils % (Manual) 77 H, Band Neutrophils % 12.0 H, Lymphocytes % (Manual) 9 L, Monocytes % (Manual) 2, Platelet Estimate Normal, Hypochromasia 1+, Anisocytosis 2+, Rouleaux 2+, ESR 39 H 02/10/22 19:46: Sodium 132 L, Potassium 3.8, Chloride 97 L, Carbon Dioxide 20 L, Anion Gap 18.8 H, BUN 10, Creatinine 1.00, Estimated Creat Clear 65, Estimated GFR 75, Est GFR ( Amer) 90, Glucose 367 H, Calcium 8.5, Total Bilirubin 4.8 H, Direct Bilirubin 3.9 H, Conjugated Bilirubin 2.6 H, Indirect Bilirubin 0.9, Unconjugated Bilirubin 0.9, AST 247 H, ALT 191 H, Alkaline Phosphatase 1261 H, Troponin I 0.02, C-Reactive Pro
--- NOTE | 2022-02-10 19:55 | ECG_ITS ---
APPROVED REPORT Exam: Resting ECG HR:104 bpm ECG Measurements Heart Rate 104 AXES ME 163 P 27 QRSd 82 QRS 51 QT 329 T 40 QTc 390 Conclusion SINUS TACHYCARDIA LOW QRS VOLTAGE IN EXTREMITY LEADS [QRS DEFLECTION < 0.5 mV IN LIMB LEADS] ABNORMAL RHYTHM ECG UNCONFIRMED REPORT Electronically signed by : Roger Hill MD 02/12/2022 18:43:36
[2022-02-10 19:57] LABS: Bacteria,Urine Trace /lpf
[2022-02-10 19:57] LABS: Basophils # 0.1 K/mm3 (0-0.2); Basophils % 0.4 % (0.1-2.0); Eosinophils # 0.2 K/mm3 (0.0-0.4); Eosinophils % 1.6 % (0.1-12.0); Hematocrit 38.5 % (42.0-52.0); Lymphocytes # 0.3 K/mm3 (0.7-4.5); Mean Corpuscular HGB Conc 31.3 g/dL (31.8-35.4); Mean Corpuscular Hemoglobin 26.4 pg (27.0-31.2); Mean Corpuscular Volume 84.3 fl (80-94); Mean Platelet Volume 8.3 fl (7.4-10.4); Monocytes # 0.4 K/mm3 (0.1-1.0); Neutrophils # 13.1 K/mm3 (1.8-7.8); Neutrophils % 93.2 % (37.0-80.0); Platelet Count 288 K/mm3 (142-424); Red Blood Count 4.57 M/mm3 (4.60-6.20); Red Cell Distribution Width 17.8 % (11.5-17.5)
--- NOTE | 2022-02-10 20:00 | CT_ITS ---
PROCEDURE INFORMATION: Exam: CT Abdomen And Pelvis With Contrast Exam date and time: 02/10/2022 8:25 PM Age: 66 years old Clinical indication: Abdominal pain; Generalized; Patient HX: PT has pancreatic cancer TECHNIQUE: Imaging protocol: Computed tomography of the abdomen and pelvis with contrast. Radiation optimization: All CT scans at this facility use at least one of these dose optimization techniques: automated exposure control; mA and/or kV adjustment per patient size (includes targeted exams where dose is matched to clinical indication); or iterative reconstruction. Contrast material: ISOVUE; Contrast volume: 75 ml; Contrast route: IV; COMPARISON: CT ABDOMEN PELVIS W CON 01/01/2022 7:13 AM FINDINGS: Lungs: No mass/infiltrate at either lung base. No pleural effusion. Linear zones of scarring or atelectasis at the lung bases. Liver: Prominent intrahepatic biliary dilatation with the degree of intrahepatic biliary dilatation more severe when compared with 01/01/2022 examination. There has been significant progression of metastatic disease within the liver since prior examination. There are now 8-10 metastatic deposits present within the liver. The largest is present within the right hepatic lobe near the dome of the liver measuring 2.9 cm in size. Gallbladder and bile ducts: The gallbladder is no longer identified. This raises the possibility of cholecystectomy since prior examination of 01/01/2022. The common bile duct has increased in size from 12 mm in in diameter on prior examination to 17 mm in diameter currently. Pancreas: There is increasing size of a mass within the pancreatic head since prior examination. The mass currently measures 4.6 x 3.9 cm in size. It surrounds a stent within the distal common bile duct. Increasing caliber of the main pancreatic duct since prior examination. Current transverse diameter is 12 mm. Spleen: Normal. No splenomegaly. Adrenal glands: Normal. No mass. Kidneys and ureters: Normal. No hydronephrosis. Stomach and bowel: Rectal and colonic fecal stasis. No obstruction. No mucosal thickening. Small bowel mesentery is normal. Appendix: No acute appendicitis. Intraperitoneal space: Unremarkable. No free air. No significant fluid collection. Vasculature: Unremarkable. No abdominal aortic aneurysm. Lymph nodes: 1.9 cm periportal lymph node identified. Series 3, image 43. No pre should we will change in size when compared with prior examination. Urinary bladder: There is a Sarmiento catheter identified within the bladder. Limited distention of the bladder. Reproductive: Unremarkable as visualized. Bones/joints: Unremarkable. No acute fracture. Soft tissues: Unremarkable. IMPRESSION: 1. The gallbladder is not identified, raising the possibility of interval cholecystectomy since 01/01/2022. 2. Increasing intrahepatic and extrahepatic biliary dilatation since prior examination. This could be on the basis of prior cholecystectomy although the possibilities of stent malfunction is also considered. 3. Size of the main pancreatic duct is increasing since prior examination. 4. Interval progression of hepatic metastatic disease since prior examination. 5. 1.9 cm periportal lymph node is unchanged when compared with prior examination. 6. Sarmiento catheter within the bladder. The bladder is not distended. 7. Rectal and colonic fecal stasis.
[2022-02-10 20:01] LABS: MANUAL DIFFERENTIAL MANUAL DIFFERENTIAL (MANUAL DIFF)
[2022-02-10 20:09] LABS: Alanine Aminotransferase 191 U/L (12-78); Albumin Level 3.2 g/dl (3.5-5.0); Anion Gap 18.8 mEq/L (5-15); Aspartate Amino Transferase 247 U/L (17-59); Bilirubin, Conjugated 2.6 mg/dL (0.0-0.3); Bilirubin,Direct 3.9 mg/dl (0.0-0.4); Bilirubin,Indirect 0.9 mg/dL (0.0-0.9); Bilirubin,Total 4.8 mg/dl (0.2-1.3); Bilirubin,Unconjugated 0.9 mg/dL (0.0-1.1); Blood Urea Nitrogen 10 mg/dl (9-20); Calcium 8.5 mg/dl (8.4-10.2); Carbon Dioxide 20 mmol/L (22.0-30.0); Chloride 97 mmol/L (98-107); Creatinine Clearance Estimated 65 mL/min (50-200); Estimated Glomerular Filt Rate 75 ml/min (>60); GFR (African American) 90 ML/MIN (>60); Glucose 367 mg/dl (74-100); Potassium 3.8 mmoL/L (3.5-5.1); Sodium 132 mmol/L (136-145); Total Protein,Serum 6.5 g/dl (6.3-8.2)
[2022-02-10 20:13] LABS: Coronavirus 19, PCR Not Detected (NotDetected); Influenza A, PCR Not Detected (NotDetected); Influenza B, PCR Not Detected (NotDetected)
[2022-02-10 20:15] LABS: C-Reactive Protein 75.9 mg/L (0-4)
[2022-02-10 20:16] LABS: Alkaline Phosphatase 1261 U/L (38-126)
[2022-02-10 20:18] LABS: Anisocytosis 2+; Hypochromasia 1+; Lymphocytes % 9 % (10-50); Monocytes % 2 % (2-9); Neutrophils % 77 % (42-76); Platelet Estimate Normal; Rouleaux 2+; Total Cells Counted 100
[2022-02-10 20:24] LABS: Troponin I 0.02 ng/ml (0.00-0.034)
[2022-02-10 20:26] LABS: Lactic Acid 3.7 mmol/L (0.7-2.1)
[2022-02-10 20:28] LABS: Procalcitonin 7.75 ng/mL (0.0-2.0)
[2022-02-10 20:35] LABS: Erythrocyte Sedimentation Rate 39 mm/hr (0-20)
--- NOTE | 2022-02-10 21:06 | PC.NURSE ---
NO FAMILY AVAILABLE AT THIS TIME. UNABLE TO OBTAIN UPDATED MEDICATION LIST.
--- NOTE | 2022-02-10 22:05 | CT_ITS ---
PROCEDURE INFORMATION: Exam: CT Head Without Contrast Exam date and time: 02/10/2022 10:15 PM Age: 66 years old Clinical indication: Other: Headache, pancreatic cancer; Additional info: Pancreatic cancer headache TECHNIQUE: Imaging protocol: Computed tomography of the head without contrast. Radiation optimization: All CT scans at this facility use at least one of these dose optimization techniques: automated exposure control; mA and/or kV adjustment per patient size (includes targeted exams where dose is matched to clinical indication); or iterative reconstruction. COMPARISON: CT HEAD/BRAIN WO CON 01/01/2022 7:04 AM FINDINGS: Brain: No acute intracranial bleed or focal cerebral edema. Moderate central and peripheral cerebral atrophy. Chronic deep white matter ischemic changes are noted within lateral periventricular white matter. Cerebral ventricles: Moderate atrophy related global ventriculomegaly. No midline shift. Paranasal sinuses: Visualized sinuses are unremarkable. No fluid levels. Mastoid air cells: Visualized mastoid air cells are well aerated. Bones/joints: Unremarkable. No acute fracture. Soft tissues: Unremarkable. Vasculature: Intracranial artery density is normal. IMPRESSION: 1. No acute intracranial bleed or focal cerebral edema. 2. Moderate central and peripheral cerebral atrophy with moderate atrophy related global ventriculomegaly and chronic deep white matter ischemic changes within lateral periventricular white matter. 3. Overall appearance of the head is unchanged since 01/01/2022.
[2022-02-10 22:15] LABS: Occult Blood,Stool Negative (Negative)
[2022-02-10 22:23] LABS: Reflex Lactic Add Lactic Reflex
[2022-02-10 22:49] LABS: Lactic Acid Follow Up (RFLX 1) 1.9 mmol/L (0.7-2.1)
[2022-02-10 23:02] LABS: Troponin I 0.04 ng/ml (0.00-0.034)
[2022-02-10 23:44] LABS: Ammonia < 9 umol/L (9-30)
[2022-02-11] VITALS (13 sets, daily range): BP systolic 107–149; BP diastolic 76–98; PULSE 66–88; RESP 16–22; TEMP 36.7–38.2; O2SAT 95–98; BMI 22.9
--- NOTE | 2022-02-11 01:45 | PC.NURSE ---
PT ARRIVED TO FLOOR VIA STRETCHER FROM ED W/STAFF @ [id number]
[2022-02-11 06:21] LABS: Chloride 106 mmol/L (98-107); Potassium 3.9 mmoL/L (3.5-5.1); Sodium 133 mmol/L (136-145)
[2022-02-11 06:24] LABS: Anion Gap 10.9 mEq/L (5-15); Blood Urea Nitrogen 9 mg/dl (9-20); Carbon Dioxide 20 mmol/L (22.0-30.0); Creatinine Clearance Estimated 71 mL/min (50-200); Estimated Glomerular Filt Rate 113 ml/min (>60); GFR (African American) 137 ML/MIN (>60)
[2022-02-11 06:25] LABS: Calcium 7.5 mg/dl (8.4-10.2); Glucose 296 mg/dl (74-100)
[2022-02-11 06:40] LABS: Basophils % 0.1 % (0.1-2.0); Hematocrit 30.2 % (42.0-52.0); Lymphocytes # 0.9 K/mm3 (0.7-4.5); Lymphocytes % 5.2 % (10-50); Mean Corpuscular HGB Conc 31.3 g/dL (31.8-35.4); Mean Corpuscular Hemoglobin 26.4 pg (27.0-31.2); Mean Corpuscular Volume 84.6 fl (80-94); Mean Platelet Volume 8.4 fl (7.4-10.4); Monocytes # 0.6 K/mm3 (0.1-1.0); Monocytes % 3.4 % (1.7-9.3); Neutrophils # 15.1 K/mm3 (1.8-7.8); Neutrophils % 91.3 % (37.0-80.0); Platelet Count 250 K/mm3 (142-424); Red Blood Count 3.58 M/mm3 (4.60-6.20); Red Cell Distribution Width 18.3 % (11.5-17.5); White Blood Count 16.6 K/mm3 (4.8-10.8)
[2022-02-11 06:41] LABS: Hemoglobin 9.5 g/dL (14.1-18.0); MANUAL DIFFERENTIAL MANUAL DIFFERENTIAL (MANUAL DIFF)
--- NOTE | 2022-02-11 07:08 | P.CONPHA_ITS ---
[facility] Pharmacy VTE Monitoring - Patient Demographics Admission date: 02/10/22 Report Date: 02/11/22 Time: 07:08 Allergies/Adverse Reactions: Patient Allergies No Known Allergies Allergy (Verified 01/16/22 14:54) Height: 1.73 m Weight: 68.765 kg Patient Problems: Current Active Problems Pancreatic cancer (Acute) Severe sepsis with acute organ dysfunction (Acute) Febrile illness, acute (Acute) - VTE Risk Labs: VTE Related Lab Results Hgb 9.5 g/dL (14.1-18.0) L D 02/11/22 05:58 Hct 30.2 % (42.0-52.0) L 02/11/22 05:58 Plt Count 250 K/mm3 (142-424) 02/11/22 05:58 BUN 9 mg/dl (9-20) 02/11/22 05:58 Creatinine 0.70 mg/dl (0.66-1.25) D 02/11/22 05:58 Estimated Creat Clear 71 mL/min (50-200) 02/11/22 05:58 - Prophylaxis VTE Prophylaxis Ordered?: Yes Types of VTE Prophylaxis: TEDS Knee High Location of Applied Device: Bilateral Lower Extremeties
[2022-02-11 07:26] LABS: Lymphocytes % 11 % (10-50); Monocytes % 3 % (2-9); Neutrophils % 86 % (42-76); Total Cells Counted 100
[2022-02-11 07:27] LABS: Anisocytosis 1+; Hypochromasia 1+; Platelet Estimate Normal
--- NOTE | 2022-02-11 07:58 | HMH.PHACONS ---
- Pharmacy Consult Date: 02/11/22 Time: 07:58 Referring provider: DR. VINCENT Reason for Consult:: VANCOMYCIN DOSING Allergies and ADEs:: Allergies Allergy/AdvReac Type Severity Reaction Status Date / Time No Known Allergies Allergy Verified 01/16/22 14:54 Home Medications:: Home Medications Medication Instructions Recorded Confirmed Type ALPRAZolam [Xanax 0.5mg tab] 0.5 mg PO BID 11/20/21 02/11/22 History Metformin HCl [Metformin 1000mg 1,000 mg PO BIDWMEAL 11/20/21 02/11/22 History Tablets] Pantoprazole Sodium 40 mg PO DAILY 11/20/21 01/16/22 History Zolpidem Tartrate 10 mg PO HS 11/20/21 01/16/22 History ondansetron HCL [Zofran 4mg Tab*] 4 mg PO TIDP PRN 11/20/21 01/16/22 History Baclofen [Lioresal 10mg tablet] 10 mg PO TIDP PRN 01/01/22 01/16/22 History Docusate Sodium [Docusate Sodium 100 - 200 mg PO DAILY 01/01/22 01/16/22 History 100mg Cap] Ferrous Sulfate [Ferrous Sulfate 325 mg PO DAILY 01/01/22 01/16/22 History 325mg Tablet] Potassium Gluconate 1 tab PO DAILY 01/01/22 01/16/22 History Simethicone 250 mg PO BIDP PRN 01/01/22 01/16/22 History polyethylene glycoL 3350 [Miralax 17 gm PO DAILY 01/01/22 01/16/22 History 17gm Packet] Amoxicillin/Potassium Clav 1 tab PO BID 7 Days #14 tab 01/04/22 01/16/22 Rx [Amox-Clav 875-125 mg Tablet] oxycodone-acetaminophen 7.5 mg-325 1 tab PO TID #15 tab 01/04/22 02/11/22 Rx mg tablet allopurinol 300 mg tablet 300 mg PO DAILY #90 tab 01/28/22 02/11/22 Rx doxazosin 4 mg tablet 4 mg PO DAILY #90 tab 01/28/22 02/11/22 Rx finasteride 5 mg tablet 5 mg PO DAILY 01/28/22 02/11/22 History Height: 1.73 m Weight: 68.765 kg Laboratory Results:: Laboratory Results - last 24 hr 02/10/22 19:27: Urine Color Dk yellow, Urine Appearance Clear, Urine pH 5.5, Ur Specific [place] 1.015, Urine Protein Negative, Urine Glucose (UA) 3+, Urine Ketones Negative, Urine Blood Negative, Urine Nitrate Negative, Urine Bilirubin 2+ A, Urine Urobilinogen 0.2, Ur Leukocyte Esterase Negative, Urine RBC 3-5, Urine WBC 5-10, Ur Squamous Epith Cells 3-5, Urine Bacteria Trace 02/10/22 19:46: WBC 14.0 H, RBC 4.57 L, Hgb 12.0 L, Hct 38.5 L, MCV 84.3, MCH 26.4 L, MCHC 31.3 L, RDW 17.8 H, Plt Count 288, MPV 8.3, Neut % (Auto) 93.2 H, Lymph % (Auto) 2.0 L, [place] % (Auto) 3.0, Eos % (Auto) 1.6, Baso % (Auto) 0.4, Neut # (Auto) 13.1 H, Lymph # (Auto) 0.3 L, [place] # (Auto) 0.4, Eos # (Auto) 0.2, Baso # (Auto) 0.1, Total Counted 100, Neutrophils % (Manual) 77 H, Band Neutrophils % 12.0 H, Lymphocytes % (Manual) 9 L, Monocytes % (Manual) 2, Platelet Estimate Normal, Hypochromasia 1+, Anisocytosis 2+, Rouleaux 2+, ESR 39 H 02/10/22 19:46: Sodium 132 L, Potassium 3.8, Chloride 97 L, Carbon Dioxide 20 L, Anion Gap 18.8 H, BUN 10, Creatinine 1.00, Estimated Creat Clear 65, Estimated GFR 75, Est GFR ( Amer) 90, Glucose 367 H, Calcium 8.5, Total Bilirubin 4.8 H, Direct Bilirubin 3.9 H, Conjugated Bilirubin 2.6 H, Indirect Bilirubin 0.9, Unconjugated Bilirubin 0.9, AST 247 H, ALT 191 H, Alkaline Phosphatase 1261 H, Troponin I 0.02, C-Reactive Protein 75.9 H, Total Protein 6.5, Albumin 3.2 L, Procalcitonin 7.75 H 02/10/22 19:46: SARS-CoV-2 (PCR) Not detected, Influenza A Untype (PCR) Not detected, Influenza Type B (PCR) Not detected 02/10/22 20:05: Lactate 3.7 H 02/10/22 22:05: Stool Occult Blood Negative 02/10/22 22:30: Troponin I 0.04 H 02/10/22 22:30: Lactate 1.9 02/10/22 23:39: Ammonia < 9 L 02/11/22 05:58: WBC 16.6 H, RBC 3.58 L, Hgb 9.5 L D, Hct 30.2 L, MCV 84.6, MCH 26.4 L, MCHC 31.3 L, RDW 18.3 H, Plt Count 250, MPV 8.4, Neut % (Auto) 91.3 H, Lymph % (Auto) 5.2 L, [place] % (Auto) 3.4, Eos % (Auto) 0.0 L, Baso % (Auto) 0.1, Neut # (Auto) 15.1 H, Lymph # (Auto) 0.9, [place] # (Auto) 0.6, Eos # (Auto) 0.0, Baso # (Auto) 0.0, Total Counted 100, Neutrophils % (Manual) 86 H, Lymphocytes % (Manual) 11, Monocytes % (Manual) 3, Platelet Estimate Normal, RBC Morphology Not Reportable, Hypochromasia 1+, Anisocyto
--- NOTE | 2022-02-11 09:34 | HMH.HP ---
*Admission Date: 02/10/22 *Chief complaint: abd pain *History of present illness: 66 yr old male presents to ed with fever, high blood sugar,and confusion for a few days. pt with hx of pancreatic cancer - has no recent chemotherapy, pt has been hospice but has voiced he now wants treatment. Per ct pancreas mass and mets to liver. Pt was admitted for sepsis. [facility] History I have reviewed the patient's past medical history: Yes Medical History: Reports:: Anxiety, Cancer, Depression, Diabetes Mellitus Type 2, Hyperlipidemia, Hypertension Denies:: Diabetes Mellitus Type 1, MRSA *Have you ever received a pneumonia vaccine?: (unknown) *Have you received a flu vaccine this season?: No (2019) Other Surgeries: Yes: Appendectomy, Cancer Surgery, Colonoscopy, Other Amputation: No Fractures: No - *Social History Smoking Status: Never smoker Alcohol Intake: current Alcohol Intake Frequency:: 0-2 drinks per day Substance Use Type: marijuana Last Used Substance: unknown *Occupational Status:: unemployed Housing: house Household Members: family *Travel in the last 8 weeks: None - Psychiatric History Pschychiatric History:: Reports:: Anxiety, Depression, Suicide Attempt (pt states he has tried to harm himself before w/ using etoh) Family Hx:: Unable to obtain Review of Systems - Review of Systems Review of systems:: pertinent systems reviewed and negative unless documented below - Constitutional Denies body ache(s) - Eyes Denies blurry vision - ENT Denies bleeding gums - *Cardiovascular Denies chest pain at rest - *Respiratory Denies chest congestion - *Gastrointestinal Reports abdominal pain, Denies belching - *Genitourinary Denies urinary frequency - *Musculoskeletal Denies abnormal walking - Integumentary/Breasts Denies hair loss - *Neurologic Denies behavioral changes - Psychiatric Denies lack of enjoyment - Endocrine Denies excessive sweating - Hematologic/Lymphatic Denies easy bruising - Allergic/Immunologic Denies itchy eyes Meds Home Medications Medication Instructions Recorded Confirmed Type ALPRAZolam [Xanax 0.5mg tab] 0.5 mg PO BID 11/20/21 02/11/22 History Metformin HCl [Metformin 1000mg 1,000 mg PO BIDWMEAL 11/20/21 02/11/22 History Tablets] Pantoprazole Sodium 40 mg PO DAILY 11/20/21 01/16/22 History Zolpidem Tartrate 10 mg PO HS 11/20/21 01/16/22 History ondansetron HCL [Zofran 4mg Tab*] 4 mg PO TIDP PRN 11/20/21 01/16/22 History Baclofen [Lioresal 10mg tablet] 10 mg PO TIDP PRN 01/01/22 01/16/22 History Docusate Sodium [Docusate Sodium 100 - 200 mg PO DAILY 01/01/22 01/16/22 History 100mg Cap] Ferrous Sulfate [Ferrous Sulfate 325 mg PO DAILY 01/01/22 01/16/22 History 325mg Tablet] Potassium Gluconate 1 tab PO DAILY 01/01/22 01/16/22 History Simethicone 250 mg PO BIDP PRN 01/01/22 01/16/22 History polyethylene glycoL 3350 [Miralax 17 gm PO DAILY 01/01/22 01/16/22 History 17gm Packet] Amoxicillin/Potassium Clav 1 tab PO BID 7 Days #14 tab 01/04/22 01/16/22 Rx [Amox-Clav 875-125 mg Tablet] oxycodone-acetaminophen 7.5 mg-325 1 tab PO TID #15 tab 01/04/22 02/11/22 Rx mg tablet allopurinol 300 mg tablet 300 mg PO DAILY #90 tab 01/28/22 02/11/22 Rx doxazosin 4 mg tablet 4 mg PO DAILY #90 tab 01/28/22 02/11/22 Rx finasteride 5 mg tablet 5 mg PO DAILY 01/28/22 02/11/22 History Allergies Allergy/AdvReac Type Severity Reaction Status Date / Time No Known Allergies Allergy Verified 01/16/22 14:54 Exam Vital signs and Labs for Last 24 Hours: Temp Pulse Resp BP Pulse Ox 98.3 F 68 18 130/87 96 02/11/22 04:00 02/11/22 04:00 02/11/22 04:00 02/11/22 04:00 02/11/22 04:00 Laboratory Results - last 24 hr 02/10/22 19:27: Urine Color Dk yellow, Urine Appearance Clear, Urine pH 5.5, Ur Specific [place] 1.015, Urine Protein Negative, Urine Glucose (UA) 3+, Urine Ketones Negative, Urine Blood Negative, Urine Nitrate Negative, Urine
--- NOTE | 2022-02-11 10:44 | HMH.PHAINT ---
MEDICATION RECONCILIATION COMPLETED ON PATIENT USING EXTERNAL FILL HISTORY FROM PHARMACY, RICHARD REPORT, AND LIST FROM [facility]. -YASIR BARRETTD
--- NOTE | 2022-02-11 11:02 | SW/DCPLANNER ---
Addendum entered by Denise Jordan 02/12/22 09:47: The discharge plan for this patient is to return back home w/ sister and continue care under [facility]. I have updated Ev bryant/ Estefanía regarding discharge plans and updated patient information will be faxed. Addendum entered by Denise Jordan 02/11/22 15:52: Ev bryant/ Estefanía stated that the plan for this patient is for patient's sister (Fabiola/POA) will be speaking with patient once she gets off work regarding plan: transfer to higher level of care vs continue comfort care. Ev stated that Hospice nurse (Mary) will follow up with nursing staff at [facility] regarding discharge plans that patient/POA decide. Addendum entered by Denise Jordan 02/11/22 15:28: I am currently waiting to hear back from Jennie bryant/ Estefanía regarding on situation for this patient. Original Note: I did speak w/ Ev with [facility] regarding this patient. Patient is currently established with their services at this time. Patient is continuously changing his mind regarding Hospice Care vs treatment for cancer. Ev stated that this patient's admission is related to Hospice diagnosis. Ev will send patient's Hospice nurse to [facility] to evaluate situation.
--- NOTE | 2022-02-11 11:28 | PC.NURSE ---
Addendum entered by Candelaria Espinoza RN 02/11/22 13:15: 1211 call returned from Arcadio Oneil. pt ok to have full liquid diet and to advance as tolerated. Original Note: 1038 called and left message for Arcadio Oneil in regards to pt requesting food/water. 1125 called office again, was able to speak with Arcadio Oneil in regards to diet order for pt. Arcadio Oneil needs to speak to Dr Dick about orders, then she will return call.
[2022-02-11 11:57] LABS: POC Glucose,Bedside 141 (70-110)
--- NOTE | 2022-02-11 13:10 | PC.NURSE ---
pt was offered amaury marie and he refused, stating that those things are too tight pt was also asked to get up to the chair as per request from Dr Dick. PT refused, stating that his stomach was hurting too bad pt was then medicated.
--- NOTE | 2022-02-11 14:32 | PC.NURSE ---
Received lab results from lab. All 4 blood culture bottles (2 aerobic and 2 anaerobic bottles) are positive for gram negative rods. gram stain matches as well. PCR on bottles shows E-Coli. reported to Arcadio JOEL at 1431. also reported that [facility] called for update on pt, states they do not have a bed at this time, but pt is priority on the list.
--- NOTE | 2022-02-11 15:46 | PC.NURSE ---
pt has remained in bed this shift. he has refused to be up to chair when asked, and he has refused to wear amaury hose. nad noted lungs are clear, bowel sounds active. pt iv abx changed r/t positive preliminary blood cultures. will continue to monitor. pt sister is currently on the phone with him speaking about his plans. (whether to continue with hospice or to begin treatment for pancreatic/liver cancer again)
--- NOTE | 2022-02-11 16:46 | PC.NURSE ---
multiple shift intake
[2022-02-11 17:11] LABS: POC Glucose,Bedside 163 (70-110)
[2022-02-12] VITALS: BP 140/89; PULSE 68; PULSE 69; RESP 18; TEMP 36.5; O2SAT 97
[2022-02-12 04:00] VITALS: BP 147/97; PULSE 66; PULSE 74; RESP 18; TEMP 36.9; O2SAT 96
[2022-02-12 04:56] VITALS: BMI 24.1
[2022-02-12 06:13] LABS: Basophils % 0.3 % (0.1-2.0); Eosinophils # 0.2 K/mm3 (0.0-0.4); Eosinophils % 1.9 % (0.1-12.0); Hemoglobin 9.3 g/dL (14.1-18.0); Lymphocytes # 0.7 K/mm3 (0.7-4.5); Lymphocytes % 7.8 % (10-50); Mean Corpuscular HGB Conc 31.9 g/dL (31.8-35.4); Mean Corpuscular Hemoglobin 26.9 pg (27.0-31.2); Mean Corpuscular Volume 84.2 fl (80-94); Mean Platelet Volume 8.3 fl (7.4-10.4); Monocytes # 0.4 K/mm3 (0.1-1.0); Neutrophils # 7.8 K/mm3 (1.8-7.8); Neutrophils % 85.9 % (37.0-80.0); Platelet Count 255 K/mm3 (142-424); Red Blood Count 3.45 M/mm3 (4.60-6.20); Red Cell Distribution Width 18.3 % (11.5-17.5); White Blood Count 9.1 K/mm3 (4.8-10.8)
[2022-02-12 06:20] LABS: MANUAL DIFFERENTIAL MANUAL DIFFERENTIAL (MANUAL DIFF)
[2022-02-12 06:44] LABS: Chloride 108 mmol/L (98-107); Potassium 3.5 mmoL/L (3.5-5.1); Sodium 134 mmol/L (136-145)
[2022-02-12 06:47] LABS: Anion Gap 9.5 mEq/L (5-15); Blood Urea Nitrogen 6 mg/dl (9-20); Carbon Dioxide 20 mmol/L (22.0-30.0); Creatinine Clearance Estimated 74 mL/min (50-200); Estimated Glomerular Filt Rate 135 ml/min (>60); GFR (African American) 163 ML/MIN (>60)
[2022-02-12 06:48] LABS: Calcium 7.5 mg/dl (8.4-10.2); Glucose 125 mg/dl (74-100)
[2022-02-12 07:40] LABS: Anisocytosis 1+; Eosinophils % 2 % (0-3); Hypochromasia 1+; Lymphocytes % 12 % (10-50); Monocytes % 2 % (2-9); Neutrophils % 84 % (42-76); Platelet Estimate Normal; Total Cells Counted 100
[2022-02-12 08:00] VITALS: BP 146/66; PULSE 62; PULSE 64; RESP 16; TEMP 36.6; O2SAT 95; O2SAT 97
--- NOTE | 2022-02-12 09:32 | HMH.DCSUM ---
General - General Admission date:: 02/11/22 Discharge date: 02/12/22 HPI HPI: 66 yr old male presents to ed with fever, high blood sugar,and confusion for a few days. pt with hx of pancreatic cancer - has no recent chemotherapy, pt has been hospice but has voiced he now wants treatment. Per ct pancreas mass and mets to liver. Pt was admitted for sepsis. Hospital Course Hospital Course: 66 yr old male presents to ed with fever, high blood sugar,and confusion for a few days. pt with hx of pancreatic cancer - has no recent chemotherapy, pt has been hospice but has voiced he now wants treatment. Per ct pancreas mass and mets to liver. Pt was admitted for sepsis. Patient was admitted originally for pancreatic cancer with mets to the liver, he had refused chemotherapy in the past and has been under hospice care. At the time of his admission he had refused hospice, voiced full CODE STATUS, and was placed on transfer list to [facility]. During his stay after several discussions he decided he was going back home under hospice care with a DNR status. Metastasis to liver, Pancreatic cancer, Abdominal/pelvic CT reveals increased progression of metastatic liver cancer, pancreas has increased size of mass, common bile duct has increased. He will also be started on Xarelto for prophylaxis Febrile illness, acute, Severe sepsis with acute organ dysfunction Blood cultures x2 with preliminary gram-negative rods. He has received Invanz and vancomycin IV and will be discharged on levofloxacin Altered mental status Mental status is returned to baseline, he is alert and oriented x3 and able to have a conversation answering all questions appropriately. Alcohol abuse He reports he is no longer consuming alcohol 66-year-old male patient sitting up in bed resting quietly, in no apparent distress noted. He denies any needs/concerns at present. Discussed with patient discharge home today with hospice he is agreement with this, sister is aware. PLAN: 1. We will discharge home today with hospice 2. Levofloxacin 750 mg p.o. daily x12 days 3. Xarelto 10 mg daily 4. Follow-up with PCP in 1 week Objective Vital signs: Temp Pulse Resp BP Pulse Ox 97.8 F 64 16 146/66 H 97 02/12/22 08:00 02/12/22 08:00 02/12/22 08:00 02/12/22 08:00 02/12/22 08:00 no acute distress, chronically ill appearing - *Routine HEENT Exam Head: Present: normocephalic Eye: Present: EOMI ENT: Present: mucous membranes moist - *Routine Neck Exam Present: trachea midline. Absent: tracheal deviation - *Routine Respiratory Exam Present: CTA bilaterally. Absent: accessory muscle use - *Routine Cardiovascular Exam Present: RRR - *Routine Abdominal Exam Present: soft, normoactive bowel sounds. Absent: tenderness, rebound - *Routine Extremities Exam Present: full ROM, pulses intact. Absent: cyanosis, clubbing - *Routine Skin Exam Present: intact, dry. Absent: cyanosis, erythema - *Routine Neurological Exam Present: alert, oriented X3. Absent: motor deficit - Routine Psychiatric Exam Present: normal affect, normal thought process. Absent: visual hallucinations Results Labs on day of discharge: Labs from last 24 hours 02/12/22 02/12/22 02/11/22 05:32 05:32 16:48 WBC 9.1 D RBC 3.45 L Hgb 9.3 L Hct 29.0 L MCV 84.2 MCH 26.9 L MCHC 31.9 RDW 18.3 H Plt Count 255 MPV 8.3 Neut % (Auto) 85.9 H Lymph % (Auto) 7.8 L [place] % (Auto) 4.0 Eos % (Auto) 1.9 Baso % (Auto) 0.3 Neut # (Auto) 7.8 Lymph # (Auto) 0.7 [place] # (Auto) 0.4 Eos # (Auto) 0.2 Baso # (Auto) 0.0 Total Counted 100 Neutrophils % (Manual) 84 H Lymphocytes % (Manual) 12 Monocytes % (Manual) 2 Eosinophils % (Manual) 2 Platelet Estimate Normal Hypochromasia 1+ Anisocytosis 1+ Sodium 134 L Potassium 3.5 Chloride 1
[2022-02-12 09:53] LABS: Vancomycin,Trough 10.1 ug/mL (5.0-10.0)
--- NOTE | 2022-02-12 10:19 | PC.NURSE ---
Discharge ordered placed at this time, patients ride called and stated she wouldnt be able to pick patient up until after 4:00pm today.
[2022-02-12 12:00] VITALS: BP 133/87; PULSE 81; RESP 16; TEMP 36.8; O2SAT 97
--- NOTE | 2022-02-12 12:24 | DIET.NUTRFU ---
RD requested diet upgrade during rounds today, he plans to discharge home with hospice today. Denied any chewing swallowing issues. Kitchen notified.
[2022-02-12 13:43] LABS: Vancomycin,Peak 23.2 ug/ml (11-39)
--- NOTE | 2022-02-12 13:53 | HMH.PHACONS ---
- Pharmacy Consult Date: 02/12/22 Time: 13:54 Referring provider: DR. VINCENT Reason for Consult:: VANCOMYCIN LEVELS Allergies and ADEs:: Allergies Allergy/AdvReac Type Severity Reaction Status Date / Time No Known Allergies Allergy Verified 01/16/22 14:54 Home Medications:: Home Medications Medication Instructions Recorded Confirmed Type ALPRAZolam [Xanax 0.5mg tab] 0.5 mg PO BID 11/20/21 02/11/22 History Metformin HCl [Metformin 1000mg 1,000 mg PO BIDWMEAL 11/20/21 02/11/22 History Tablets] Pantoprazole Sodium 40 mg PO DAILY 11/20/21 02/11/22 History Zolpidem Tartrate 10 mg PO HS 11/20/21 02/11/22 History ondansetron HCL [Zofran 4mg Tab*] 4 mg PO TIDP PRN 11/20/21 02/11/22 History Baclofen [Lioresal 10mg tablet] 10 mg PO TIDP PRN 01/01/22 02/11/22 History Docusate Sodium [Docusate Sodium 100 - 200 mg PO DAILY 01/01/22 02/11/22 History 100mg Cap] Ferrous Sulfate [Ferrous Sulfate 325 mg PO DAILY 01/01/22 02/11/22 History 325mg Tablet] Potassium Gluconate 90 mg PO DAILY 01/01/22 02/11/22 History allopurinol 300 mg tablet 300 mg PO DAILY #90 tab 01/28/22 02/11/22 Rx doxazosin 4 mg tablet 4 mg PO DAILY #90 tab 01/28/22 02/11/22 Rx finasteride 5 mg tablet 5 mg PO DAILY 01/28/22 02/11/22 History Morphine Sulfate [MS Contin 30mg 30 mg PO BID 02/11/22 02/11/22 History EXTENDED RELEASE tablet] Morphine Sulfate [MSIR 15mg tablet] 15 mg PO Q6HP PRN 02/11/22 02/11/22 History hydrOXYzine HCL [Hydroxyzine HCl] 25 mg PO Q6HP PRN 02/11/22 02/11/22 History Rivaroxaban [Xarelto 10mg tablet] 10 mg PO DAILY 30 Days #30 tab 02/12/22 Rx levoFLOXacin [Levofloxacin 750MG 750 mg PO DAILY 12 Days #12 tab 02/12/22 Rx Tablet*] Height: 1.73 m Weight: 72.348 kg Laboratory Results:: Laboratory Results - last 24 hr 02/10/22 19:27: Urine Color Dk yellow, Urine Appearance Clear, Urine pH 5.5, Ur Specific [place] 1.015, Urine Protein Negative, Urine Glucose (UA) 3+, Urine Ketones Negative, Urine Blood Negative, Urine Nitrate Negative, Urine Bilirubin 2+ A, Urine Urobilinogen 0.2, Ur Leukocyte Esterase Negative, Urine RBC 3-5, Urine WBC 5-10, Ur Squamous Epith Cells 3-5, Urine Bacteria Trace 02/11/22 16:48: POC Glucose 163 H 02/12/22 05:32: WBC 9.1 D, RBC 3.45 L, Hgb 9.3 L, Hct 29.0 L, MCV 84.2, MCH 26.9 L, MCHC 31.9, RDW 18.3 H, Plt Count 255, MPV 8.3, Neut % (Auto) 85.9 H, Lymph % (Auto) 7.8 L, [place] % (Auto) 4.0, Eos % (Auto) 1.9, Baso % (Auto) 0.3, Neut # (Auto) 7.8, Lymph # (Auto) 0.7, [place] # (Auto) 0.4, Eos # (Auto) 0.2, Baso # (Auto) 0.0, Total Counted 100, Neutrophils % (Manual) 84 H, Lymphocytes % (Manual) 12, Monocytes % (Manual) 2, Eosinophils % (Manual) 2, Platelet Estimate Normal, Hypochromasia 1+, Anisocytosis 1+ 02/12/22 05:32: Sodium 134 L, Potassium 3.5, Chloride 108 H, Carbon Dioxide 20 L, Anion Gap 9.5, BUN 6 L D, Creatinine 0.60 L, Estimated Creat Clear 74, Estimated GFR 135, Est GFR ( Amer) 163, Glucose 125 H D, Calcium 7.5 L 02/12/22 08:45: Vancomycin Trough 10.1 H 02/12/22 13:03: Vancomycin Peak 23.2 Medical History: Reports:: Anxiety, Cancer, Depression, Diabetes Mellitus Type 2, Hyperlipidemia, Hypertension Denies:: Diabetes Mellitus Type 1, MRSA Assessment and Plan (1) Metastasis to liver Status: Acute Category: Medical Code(s): C78.7 - Secondary malignant neoplasm of liver and intrahepatic bile duct (2) Febrile illness, acute Status: Acute Category: Medical Code(s): R50.9 - Fever, unspecified (3) Pancreatic cancer Status: Acute Qualifiers: Pancreatic malignancy location: unspecified Qualified Code(s): C25.9 - Malignant neoplasm of pancreas, unspecified Category: Medical Code(s): C25.9 - Malignant neoplasm of pancreas, unspecified (4) Severe sepsis with acute organ dysfunction Status: Acute Category: Medical Code(s): A41.9 - Sepsis, unspecified organism; R65.20 - Severe sepsis without septic shock (5) Altered mental status Status: Acute Qualifier
[2022-02-12 16:00] VITALS: BP 140/79; PULSE 65; PULSE 66; RESP 17; TEMP 36.9; O2SAT 99
--- NOTE | 2022-02-12 18:03 | PC.NURSE ---
Provided pt and pt sister w/ discharge instructions. All questions answered, and pt and sister both verbalized understanding. Portacath deaccessed per aseptic technique. Pt getting dressed at this time.
--- NOTE | 2022-02-20 17:28 | CARE MANAGER ---
Attempted to call patient on number listed on chart ib 02/15, 02/18 and 02/20. Unable to reach patient.
== END 2022-02-12 18:15 | disposition hospice, home (50) | DRG 872 ==
LOC: ER 20:04 → 2ND 02-11 01:11
PROVIDERS: Nurse Practitioner Family; Admitting Provider Emergency Medicine; Emergency Provider Emergency Medicine; Visit Provider Emergency Medicine
DX: A41.9 Sepsis, unspecified organism (principal); C25.9 Malignant neoplasm of pancreas, unspecified; C78.7 Secondary malignant neoplasm of liver and intrahepatic bile duct; Z51.5 Encounter for palliative care; E11.9 Type 2 diabetes mellitus without complications; E78.5 Hyperlipidemia, unspecified; I10 Essential (primary) hypertension; Z20.822 Contact with and (suspected) exposure to COVID-19; Z79.84 Long term (current) use of oral hypoglycemic drugs; F32.A Depression, unspecified; M10.9 Gout, unspecified
CPT/HCPCS: 36415; 51702; 70450; 71045; 74177; 80048; 80076; 80202; 81001; 82140; 82272; 82962; 83605; 84145; 84484; 85007; 85025; 85651; 86140; 87040; 87077; 87186; 93005; 99285; C9803; G0328; J0692; J1335; J3370; Q9967; U0003; U0005

== ENCOUNTER 2022-03-01 02:02 | Emergency (ER) | payer OTHER, SELFPAY ==
[2022-03-01 01:53] VITALS: BP 129/83; PULSE 77; RESP 16; TEMP 37.6; O2SAT 95; BMI 32.8
--- NOTE | 2022-03-01 01:55 | ECG_ITS ---
APPROVED REPORT Exam: Resting ECG HR:80 bpm ECG Measurements Heart Rate 80 AXES VA 162 P 29 QRSd 81 QRS 62 QT 376 T 45 QTc 412 Conclusion SINUS RHYTHM LOW QRS VOLTAGE IN EXTREMITY LEADS [QRS DEFLECTION < 0.5 mV IN LIMB LEADS] BORDERLINE ECG UNCONFIRMED REPORT Electronically signed by : Roger Hill MD 03/01/2022 17:31:17
--- NOTE | 2022-03-01 02:00 | XR_ITS ---
PROCEDURE INFORMATION: Exam: XR Chest Exam date and time: 03/01/2022 2:10 AM Age: 66 years old Clinical indication: Fever; Prior surgery TECHNIQUE: Imaging protocol: Radiologic exam of the chest. Views: 1 view. COMPARISON: CR XR CHEST AP 02/10/2022 8:32 PM FINDINGS: Tubes, catheters and devices: Central venous catheter is unchanged. Lungs: Platelike atelectasis is noted on the right. This is also unchanged. Pleural spaces: Unremarkable. No pleural effusion. No pneumothorax. Heart/Mediastinum: Unremarkable. No cardiomegaly. Diaphragm: Elevation the right hemidiaphragm is unchanged. Bones/joints: Unremarkable. IMPRESSION: Stable exam. No definite infiltrate noted.
--- NOTE | 2022-03-01 02:11 | PC.NURSE ---
RAD at BS
[2022-03-01 02:21] LABS: Coronavirus 19, PCR Not Detected (NotDetected); Influenza A, PCR Not Detected (NotDetected); Influenza B, PCR Not Detected (NotDetected); Microscopic, Urine URINE MICROSCOPIC (MICROSCOPIC)
[2022-03-01 02:22] LABS: Basophils # 0.1 K/mm3 (0-0.2); Basophils % 1.2 % (0.1-2.0); Eosinophils # 0.1 K/mm3 (0.0-0.4); Eosinophils % 1.6 % (0.1-12.0); Hematocrit 34.3 % (42.0-52.0); Hemoglobin 10.2 g/dL (14.1-18.0); Lymphocytes % 15.3 % (10-50); Mean Corpuscular HGB Conc 29.8 g/dL (31.8-35.4); Mean Corpuscular Hemoglobin 25.9 pg (27.0-31.2); Mean Corpuscular Volume 86.8 fl (80-94); Mean Platelet Volume 8.8 fl (7.4-10.4); Monocytes # 0.4 K/mm3 (0.1-1.0); Monocytes % 5.6 % (1.7-9.3); Neutrophils # 4.9 K/mm3 (1.8-7.8); Neutrophils % 76.2 % (37.0-80.0); Platelet Count 348 K/mm3 (142-424); Red Blood Count 3.96 M/mm3 (4.60-6.20); Red Cell Distribution Width 18.3 % (11.5-17.5); White Blood Count 6.4 K/mm3 (4.8-10.8)
[2022-03-01 02:27] LABS: Appearance,Urine CLEAR (Clear); Blood, Urine Negative (Negative); Color,Urine ORANGE (Yellow); Glucose,Urine (UA) Negative (Negative); Ketones,Urine Negative (Negative); Leukocyte Esterase,Urine Negative (Negative); Nitrate,Urine Negative (Negative); PH,Urine 6.5 (5.0-8.5); Protein,Urine Negative (Negative); Specific Gravity, Urine 1.015 (1.005-1.030)
[2022-03-01 02:29] LABS: Bilirubin,Urine 2+ (Negative)
[2022-03-01 02:30] LABS: Lactic Acid 1.4 mmol/L (0.7-2.1)
[2022-03-01 02:31] LABS: Alanine Aminotransferase 78 U/L (12-78); Albumin Level 2.8 g/dl (3.5-5.0); Albumin/Globulin Ratio 0.9 (1.1-1.8); Anion Gap 7.8 mEq/L (5-15); Aspartate Amino Transferase 159 U/L (17-59); Bilirubin,Total 1.9 mg/dl (0.2-1.3); Blood Urea Nitrogen 8 mg/dl (9-20); Calcium 8.2 mg/dl (8.4-10.2); Carbon Dioxide 30 mmol/L (22.0-30.0); Chloride 103 mmol/L (98-107); Creatinine Clearance Estimated 110 mL/min (50-200); Estimated Glomerular Filt Rate 97 ml/min (>60); GFR (African American) 117 ML/MIN (>60); Glucose 131 mg/dl (74-100); Potassium 3.8 mmoL/L (3.5-5.1); Sodium 137 mmol/L (136-145); Total Protein,Serum 5.8 g/dl (6.3-8.2)
[2022-03-01 02:41] LABS: NT Pro Brain Natriuretic Pep. 634 pg/mL (0-125)
[2022-03-01 02:42] LABS: Alkaline Phosphatase 2044 U/L (38-126); Bacteria,Urine 1+ /lpf; Mucus,Urine 1+ /lpf
[2022-03-01 02:46] LABS: Troponin I < 0.01 ng/ml (0.00-0.034)
[2022-03-01 02:49] LABS: Procalcitonin 0.771 ng/mL (0.0-2.0)
--- NOTE | 2022-03-01 03:01 | HMH.EDAMS ---
ED Disposition Clinical Impression: Altered mental status Qualifiers: Altered mental status type: delirium Qualified Code(s): R41.0 - Disorientation, unspecified Pancreatic cancer Qualifiers: Pancreatic malignancy location: unspecified Qualified Code(s): C25.9 - Malignant neoplasm of pancreas, unspecified Disposition: Home, Self-Care Condition on Discharge: Fair Instructions: DI for Altered Mental Status Additional Instructions: fluids and continue current meds Referrals: Salvador Dick MD [Primary Care Provider] - - Critical Care Critical Care Time: No Attestation: On 03/01/22, the high probability of a clinically significant, sudden or life threatening deterioration of the following system(s) required my full and direct attention, intervention and personal management. The time I documented below is in addition to time spent performing reported procedures but includes the following listed in this critical care notation. Medical Decision Making - Medical Records Medical records reviewed: Yes: I reviewed the patient's medical records. - Jerman Inquiry Pt receiving controlled substance: No Vital Signs: 03/01/22 01:53 Temperature 99.6 F Temperature Source Oral Pulse Rate [Right Brachial] 77 Respiratory Rate 16 Blood Pressure [Right Arm] 129/83 Blood Pressure Mean [Right Arm] 98 Blood Pressure Source [Right Arm] Automatic Cuff Blood Pressure Position [Right Arm] Sitting 02 Sat by Pulse Oximetry 95 Oxygen Delivery Method Room Air - Lab Data Lab results reviewed: Yes: I reviewed the patient's lab results. Lab Results 03/01/22 02:15: Urine Color Finley, Urine Appearance Clear, Urine pH 6.5, Ur Specific Low[place] 1.015, Urine Protein Negative, Urine Glucose (UA) Negative, Urine Ketones Negative, Urine Blood Negative, Urine Nitrate Negative, Urine Bilirubin 2+ A, Urine Urobilinogen 1.0, Ur Leukocyte Esterase Negative, Urine RBC 3-5, Urine WBC 3-5, Urine Bacteria 1+, Urine Mucus 1+ 03/01/22 02:15: WBC 6.4, RBC 3.96 L, Hgb 10.2 L, Hct 34.3 L, MCV 86.8, MCH 25.9 L, MCHC 29.8 L, RDW 18.3 H, Plt Count 348, MPV 8.8, Neut % (Auto) 76.2, Lymph % (Auto) 15.3, [place] % (Auto) 5.6, Eos % (Auto) 1.6, Baso % (Auto) 1.2, Neut # (Auto) 4.9, Lymph # (Auto) 1.0, [place] # (Auto) 0.4, Eos # (Auto) 0.1, Baso # (Auto) 0.1 03/01/22 02:15: Sodium 137, Potassium 3.8, Chloride 103, Carbon Dioxide 30, Anion Gap 7.8, BUN 8 L, Creatinine 0.80, Estimated Creat Clear 110, Estimated GFR 97, Est GFR ( Amer) 117, Glucose 131 H, Calcium 8.2 L, Total Bilirubin 1.9 H, AST 159 H, ALT 78, Alkaline Phosphatase 2044 H, Troponin I < 0.01, Total Protein 5.8 L, Albumin 2.8 L, Globulin 3.0, Albumin/Globulin Ratio 0.9 L 03/01/22 02:15: Lactate 1.4 03/01/22 02:15: Procalcitonin 0.771 03/01/22 02:15: NT-Pro-B Natriuret Pep 634 H 03/01/22 02:15: SARS-CoV-2 (PCR) Not detected, Influenza A Untype (PCR) Not detected, Influenza Type B (PCR) Not detected 03/01/22 03:22: Ammonia < 9 L Result diagrams: 03/01/22 02:15 03/01/22 02:15 Orders (Tests/Meds): ED MEDICATIONS Generic Name Dose Route Start Last Admin Trade Name Freq PRN Reason Stop Dose Admin Sodium Chloride 1,000 mls @ 999 mls/hr 03/01/22 02:45 03/01/22 03:28 Sod Chlor 0.9% 1000ml Bag IV 03/01/22 03:45 999 mls/hr .Q1H1M YOLIE Administration Sodium Chloride 1,000 mls @ 999 mls/hr 03/01/22 03:15 03/01/22 03:29 Sod Chlor 0.9% 1000ml Bag IV 03/01/22 04:15 999 mls/hr .Q1H1M YOLIE Administration ORDERS Category Date Time Status XR chest portable Stat Exams 03/01/22 02:00 Taken Troponin I Q3H Lab 03/01/22 05:15 Ordered Troponin I Q3H Lab 03/01/22 08:15 Ordered Blood Culture Stat Micro 03/01/22 02:15 Received - Radiology Data #1 Image(s): Chest Image Reviewed: Yes I reviewed the patient's radiology image Preliminary Findings: Normal/NAD - ECG Data Tracing #1 Normal Sinus Rhythm: Yes Ischemic changes: non-specific ST-T wave changes [facility]
[2022-03-01 03:41] LABS: Ammonia < 9 umol/L (9-30)
--- NOTE | 2022-03-01 06:40 | PC.NURSE ---
Called Fabiola the pts sister and she said she would call her sister for a ride
--- NOTE | 2022-03-01 06:45 | PC.NURSE ---
Pt sister, Stacia, called and advised that she would be on her way to pick him up shortly.
[2022-03-01 07:00] VITALS: BP 128/68; PULSE 84; RESP 18; O2SAT 95
--- NOTE | 2022-03-01 07:55 | PC.NURSE ---
owusu cath removed
--- NOTE | 2022-03-01 08:00 | PC.NURSE ---
pt sister at bedside.
[2022-03-01 08:02] VITALS: BP 124/80; PULSE 81; RESP 16; O2SAT 94
[2022-03-01 08:10] VITALS: BP 107/63; PULSE 78; RESP 18; TEMP 37.1; O2SAT 96
== END 2022-03-01 08:12 | disposition home or self-care (01) ==
PROVIDERS: Emergency Provider Emergency Medicine; PCP Emergency Medicine
DX: R41.0 Disorientation, unspecified (principal); C25.9 Malignant neoplasm of pancreas, unspecified; Z79.84 Long term (current) use of oral hypoglycemic drugs; Z79.899 Other long term (current) drug therapy; E78.5 Hyperlipidemia, unspecified; E11.9 Type 2 diabetes mellitus without complications; I10 Essential (primary) hypertension; F41.9 Anxiety disorder, unspecified; M10.9 Gout, unspecified; G47.33 Obstructive sleep apnea (adult) (pediatric)
CPT/HCPCS: 51702; 71045; 80053; 81001; 82140; 83605; 83880; 84145; 84484; 85025; 87040; 93005; 96365; 96366; 99284; C9803; U0003; U0005